=== PATIENT | male | born 1955 | race American Indian/Alaskan Native ===

== ENCOUNTER 2021-02-24 14:30 | Emergency (ER) | payer MEDICARE ==
--- NOTE | 2021-02-24 14:41 | Event Note ---
ED Screening Note Date of service: 02/24/21 Time: 14:39 ED Screening Note: 65-year-old male patient presents to the emergency department with complaints of nontraumatic right foot pain/swelling/erythema starting 4 days ago. No known history of diabetes. No known history of gout. No history of similar symptoms. General: Awake, appropriately interactive, no acute distress. Neck: Supple. Full range of motion intact. Cardiovascular: Normal peripheral perfusion. Pulmonary: No respiratory distress. Patient is speaking normally without use of accessory muscles. Skin: No apparent rashes or lesions. Neurological: No facial asymmetry. Speech is clear. Follows commands. Patient is alert and oriented. Musculoskeletal: Tenderness to palpation throughout the dorsum of the right foot with moderate edema as well as overlying warmth/erythema. Distal neurovascular and motor/sensory function is intact. Psych: Cooperative. Appropriate mood and affect. This initial assessment/diagnostic orders/clinical plan/treatment(s) is/are subject to change based on patients health status, clinical progression and re- assessment by fellow clinical providers in the ED. Further treatment and workup at subsequent clinical providers discretion. Patient/guardian urged not to elope from the ED as their condition may be serious if not clinically assessed and managed.
[2021-02-24 15:45] LABS: Calcium 8.8 mg/dL (8.4-10.2)
[2021-02-24 15:47] LABS: Basophils % (Auto) 0.4 % (0.0-1.8); Eosinophils % (Auto) 0.3 % (0.0-4.3); Hematocrit 39.5 % (35.5-45.6); Hemoglobin 12.6 gm/dl (11.8-15.2); Lymphocytes # (Auto) 1.9 K/mm3 (1.2-5.4); Mean Corpuscular HGB Conc 32 % (32-34); Mean Corpuscular Volume 84 fl (84-94); Monocytes # (Auto) 0.9 K/mm3 (0.0-0.8); Monocytes % (Auto) 8.4 % (0.0-7.3); Platelet Count 183 K/mm3 (140-440); Red Blood Count 4.72 M/mm3 (3.65-5.03); Red Cell Distribution Width 15.8 % (13.2-15.2)
--- NOTE | 2021-02-24 16:55 | Emergency Department Report ---
ED Extremity Problem HPI - General Chief complaint: Extremity Injury, Lower Stated complaint: RT LEG/ RT FOOT SWOLLEN Time Seen by Provider: 02/24/21 16:47 Source: patient, family Mode of arrival: Wheelchair Limitations: Physical Limitation - History of Present Illness Initial comments: 65-year-old male patient presents to the emergency department with complaints of nontraumatic right foot pain/swelling/erythema starting 4 days ago. No known history of diabetes. No known history of gout. No history of similar symptoms. Patient admits that he is a smoker. Patient reports he has a history of PAD and [facility] MD Complaint: extremity pain, extremity swelling, cold extremity Onset/Timin -: days(s) Location: right, other (Foot) History of Same: No Severity scale (0 -10): 3 Quality: aching Consistency: constant Improves with: nothing Worsens with: nothing Associated Symptoms: denies other symptoms - Related Data Previous Rx's Medication Instructions Recorded Last Taken Type Colchicine [Colcrys] 0.6 mg PO DAILY 5 Days #5 tablet 02/24/21 Unknown Rx Prednisone [predniSONE 5 mg (6-Day 5 mg PO .TAPER #1 tab.ds.pk 02/24/21 Unknown Rx Pack, 21 Tabs)] cephALEXin [Keflex] 500 mg PO Q12HR 7 Days #14 cap 02/24/21 Unknown Rx oxyCODONE /ACETAMINOPHEN [Percocet 1 tab PO Q6HR PRN #12 tablet 02/24/21 Unknown Rx 5/325] Allergies Allergy/AdvReac Type Severity Reaction Status Date / Time No Known Allergies Allergy Unverified 02/24/21 14:39 ED Review of Systems ROS: Stated complaint: RT LEG/ RT FOOT SWOLLEN Other details as noted in HPI Comment: All other systems reviewed and negative ED Past Medical Hx - Past Medical History Previous Medical History?: Yes Hx Hypertension: Yes - Social History Smoking Status: Never Smoker Substance Use Type: None - Medications Home Medications: Home Medications Medication Instructions Recorded Confirmed Last Taken Type Colchicine [Colcrys] 0.6 mg PO DAILY 5 Days #5 tablet 02/24/21 Unknown Rx Prednisone [predniSONE 5 mg (6-Day 5 mg PO .TAPER #1 tab.ds.pk 02/24/21 Unknown Rx Pack, 21 Tabs)] cephALEXin [Keflex] 500 mg PO Q12HR 7 Days #14 cap 02/24/21 Unknown Rx oxyCODONE /ACETAMINOPHEN [Percocet 1 tab PO Q6HR PRN #12 tablet 02/24/21 Unknown Rx 5/325] ED Physical Exam - General Limitations: Physical Limitation General appearance: alert, in no apparent distress - Head Head exam: Present: atraumatic, normocephalic - Eye Eye exam: Present: normal appearance - ENT ENT exam: Present: mucous membranes moist - Neck Neck exam: Present: normal inspection - Respiratory Respiratory exam: Present: normal lung sounds bilaterally. Absent: respiratory distress - Cardiovascular Cardiovascular Exam: Present: regular rate, normal rhythm. Absent: systolic murmur, diastolic murmur, rubs, gallop - Expanded Lower Extremity Exam Right Hip exam: Present: normal inspection Upper Leg exam: Present: normal inspection Knee exam: Present: normal inspection Lower Leg exam: Present: normal inspection Ankle exam: Present: normal inspection Foot/Toe exam: Present: tenderness, swelling, erythema Neuro vascular tendon exam: Present: pulse deficit (1+) ED Course Vital Signs 02/24/21 02/24/21 02/24/21 14:37 14:39 17:10 Temperature 98.6 F Pulse Rate 82 Respiratory 20 18 Rate Blood Pressure 126/83 [Right] O2 Sat by Pulse 100 Oximetry ED Medical Decision Making - Lab Data Result diagrams: 02/24/21 15:04 02/24/21 15:04 - Medical Decision Making 65-year-old male patient presents to the emergency department with complaints of nontraumatic right foot pain/swelling/erythema starting 4 days ago. No known history of diabetes. No known history of gout. No history of similar symptoms. Patient admits that he is a smoker. Patient reports he has a history of PAD and [facility]. Patient was given Percocet, colchicine and prednisone for pain management. Case was discussed with Dr. Barbra Vogel attending. She recommends patient to be discharged on Percocet, colchine prednisone and Keflex. Patient is to [facility]. Strongly suggest patient to discontinue smoking as this does not improve his perfusion and can make his PAD worse. Patient verbalized understanding Critical care attestation.: If time is entered above; I have spent that time in minutes in the direct care of this critically ill patient, excluding procedure time. ED Disposition Clinical Impression: Gout due to renal impairment, Cellulitis and abscess of foot Disposition: DC-01 TO HOME OR SELFCARE Is pt being admited?: No Does the pt Need Aspirin: No Condition: Stable Instructions: Low-Purine Eating Plan, Skin Abscess, [id number] Additional Instructions: Complete antibiotics as prescribed. Take all medications as prescribed. Do not operate heavy machinery while taking Percocet. Be sure to increase your water intake by 2 to 3 L daily. Is very important you follow-up with your primary healthcare provider. Prescriptions: Colchicine [Colcrys] 0.6 mg PO DAILY 5 Days #5 tablet cephALEXin [Keflex] 500 mg PO Q12HR 7 Days #14 cap oxyCODONE /ACETAMINOPHEN [Percocet 5/325] 1 tab PO Q6HR PRN #12 tablet PRN Reason: Pain Prednisone [predniSONE 5 mg (6-Day Pack, 21 Tabs)] 5 mg PO .TAPER #1 tab.ds.pk Referrals: PRIMARY CAREMD [Primary Care Provider] - 3-5 Days [facility] [Outside] - 3-5 Days VIV KRISHNA MD [Staff Physician] - 3-5 Days
[2021-02-24] MEDS ORDERED: predniSONE 20 MG TAB PO ONE (16:57)
[2021-02-24] MEDS ORDERED: COLCHICINE 0.6 MG TAB PO ONE (16:57)
[2021-02-24] MEDS ORDERED: oxyCODONE /ACETAMINOPHEN 5-325MG TAB PO ONE (16:57)
--- NOTE | 2021-02-24 16:57 | Event Note ---
Face to Face: For this encounter I have reviewed the PA/UNIT ASSISTANT documentation, treatment plan, medical decision making, and I had face to face time with this patient. I evaluated patient [id number]. Patient has an erythematous foot mostly involving the volar surface. I appreciate a 1+ DP pulse. 2 out of 10 pain. I do not suspect acute peripheral artery occlusion. Differential diagnosis includes cellulitis gout. I recommended Percocet, prednisone, colchicine. Patient understands diagnosis. He understands to stop smoking immediately considering history of peripheral artery disease.
[2021-02-24 19:39] VITALS: BP 148/84
== END 2021-02-24 19:40 | disposition home or self-care (01) ==
LOC: ED 14:30
DX: L03.115 Cellulitis of right lower limb (principal); M10.371 Gout due to renal impairment, right ankle and foot; I10 Essential (primary) hypertension; Z79.899 Other long term (current) drug therapy
CPT/HCPCS: 36415; 80048; 85025; 87040; 99283; J7512

== ENCOUNTER 2021-04-16 06:14 | Day surgery (SDC) | payer MEDICARE ==
[2021-04-16] MEDS ORDERED: SODIUM CHLORIDE 0.9% 500 ML 500 ML IV SCH (07:00)
[2021-04-16 07:08] LABS: Basophils # (Auto) 0.1 K/mm3 (0.0-0.1); Basophils % (Auto) 1.3 % (0.0-1.8); Eosinophils # (Auto) 0.2 K/mm3 (0.0-0.4); Eosinophils % (Auto) 2.5 % (0.0-4.3); Hematocrit 42.3 % (35.5-45.6); Hemoglobin 13.7 gm/dl (11.8-15.2); Lymphocytes # (Auto) 2.4 K/mm3 (1.2-5.4); Lymphocytes % (Auto) 38.5 % (13.4-35.0); Mean Corpuscular HGB Conc 32 % (32-34); Mean Corpuscular Volume 84 fl (84-94); Monocytes # (Auto) 0.7 K/mm3 (0.0-0.8); Monocytes % (Auto) 11.7 % (0.0-7.3); Platelet Count 215 K/mm3 (140-440); Red Blood Count 5.03 M/mm3 (3.65-5.03); Red Cell Distribution Width 18.6 % (13.2-15.2)
[2021-04-16 07:18] LABS: INR 1.05 (0.87-1.13); Partial Thromboplastin Time 26.2 Sec. (24.2-36.6)
[2021-04-16 07:19] LABS: Calcium 8.8 mg/dL (8.4-10.2)
[2021-04-16] MEDS ORDERED: SODIUM CHLORIDE 0.9% 1000 ML 1,000 ML IV SCH (07:45)
[2021-04-16] MEDS ORDERED: HEPARIN/NS 5000 UNIT/500ML 1,000 ML IR ONE ×2 (08:32→10:28)
[2021-04-16] MEDS ORDERED: ceFAZolin/Water 2 GM/20 ML 2 GM/20 ML SYRINGE IV ONE (09:03)
[2021-04-16] MEDS ORDERED: HEPARIN 10,000 UNITS/10 ML VIAL ONE (09:03)
[2021-04-16] MEDS ORDERED: NITROGLYCERIN SYRINGE 0 ML ONE (09:03)
[2021-04-16] MEDS: MIDAZOLAM 2 MG/2 ML INJ ONE ×2 (09:37→09:41)
[2021-04-16] MEDS: fentaNYL 100 MCG/2 ML INJ ONE ×5 (09:37→10:54)
[2021-04-16] MEDS ORDERED: diphenhydrAMINE 50 MG/ML VIAL ONE (09:40)
[2021-04-16] MEDS: LIDOCAINE 1%/EPINEPHRINE 1:100,000 VIAL (20 ML) INFILTRATI ONE ×2 (09:44→09:52)
[2021-04-16] MEDS ORDERED: ONDANSETRON 4 MG/2 ML INJ ONE (09:54)
[2021-04-16] MEDS: MIDAZOLAM 5 MG/5 ML INJ MDV IV ONE ×2 (10:15→10:54)
[2021-04-16] MEDS: hydrALAZINE 20 MG/1 ML INJ ONE ×4 (10:23→11:05)
[2021-04-16] MEDS ORDERED: METOPROLOL TARTRATE 5 MG/5 ML INJ IV ONE (10:58)
[2021-04-16] MEDS ORDERED: ASPIRIN 81 MG TAB CHEW ONE (11:06)
[2021-04-16] MEDS ORDERED: ALUM-MAG HYDROXIDE-SIMETHICONE 200-200-20MG/5ML ORAL LIQD 30 ML ONE (11:07)
[2021-04-16] MEDS ORDERED: CLOPIDOGREL 300 MG TAB ONE (11:07)
--- NOTE | 2021-04-16 11:23 | Operative Report ---
Operative Report Operative Report: EXAM: 1. Ultrasound-guided access of the right common femoral artery. 2. Ultrasound-guided access of the left common femoral artery. 3. Angiography of the right lower extremity. 4. Angiography of the left lower extremity. 5. Selection of the aorta with aortography and bilateral iliac angiography 6. Stenting of the right common iliac artery with a 8 mm x 59 mm VBX with post angioplasty with a 9 mm x 40 mm angioplasty balloon 7. Stenting of the left common iliac artery with an 8 mm x 59 mm VBX 8. Stenting of the right external iliac artery with a 8 mm x 7.5 mm Viabahn postdilated with a 7 mm x 40 mm angioplasty balloon 9. Angioplasty of the left external iliac artery with a 6 mm x 80 mm iNPACT angioplasty balloon DATE: 04/16/2021 CUSTOMER COUNTER ASSOCIATE: OBDULIO MAY MD INDICATION: Severe short distance claudication with right foot critical limb ischemia with partially healing foot wound MEDICATIONS: Please see nursing report for full details. DEVICES: 8 mm x 59 mm VBX (x2) 9 mm x 40 mm angioplasty balloon 8 mm x 7.5 cm Viabahn 7 mm x 40 mm angioplasty balloon 6 mm x 80 mm iNPACT balloon CONTRAST: 55 mL of nonionic contrast, Omnipaque 300 PROCEDURE: The risks, benefits, and alternatives were discussed with the patient; written informed consent was obtained. The patient's groins were prepped and draped in a sterile fashion. Ultrasound was used to identify the right common femoral artery which was patent. Under direct ultrasound guidance, the right common femoral artery was accessed with a 21-gauge micropuncture needle. 0.018 inch wire was passed into the aorta. Needle was exchanged for transitional dilator. Wire was exchanged for a 0.035 inch wire. Transitional dilator was exchanged for 5 Palestinian sheath. Digital subtraction angiography was performed demonstrating an appropriate puncture, above the bifurcation and below the inferior epigastric artery. Ultrasound was used to identify the left common femoral artery which was patent. Under direct ultrasound guidance, the left common femoral artery was accessed with a 21-gauge micropuncture needle. 0.018 inch wire was passed into the left iliac artery. Needle was entry exchanged for transitional dilator. Wire was exchanged for a 0.035 inch Glidewire advantage wire. This was then negotiated into the aorta. Transitional dilator was exchanged for 5 Palestinian sheath. Digital subtraction was performed demonstrating an appropriate puncture, above the bifurcation and below the inferior epigastric artery. Patient was heparinized. The abdominal aorta was selected and digital subtraction angiography was performed. Digital subtraction angiography demonstrated patency of the infrarenal abdominal aorta. The right common iliac artery had a mid 90% stenotic ulcerated plaque. The right internal iliac artery was at least 60% stenotic from the origin. The right external iliac artery had a 90% stenosis at the midportion and a proximal 40% stenosis at the proximal portion of the vessel. The distal right external iliac artery had some small ulcerations that were 20% narrowed. The right common femoral artery had diffuse 20 to 30% narrowing. The right profunda femoral artery was patent. The visualized portion of the right proximal superficial femoral artery was diffusely 60% narrowed. The left mid common iliac artery has a 70% narrowing in the left distal common iliac artery has a 90% narrowing. The left internal iliac artery was patent. The left proximal and mid external iliac artery had 50 to 70% narrowings. The left common femoral artery had diffuse 20 to 30% narrowing. The left profundofemoral artery was patent. The visualized portion of the left proximal superficial femoral artery was 70% narrowed diffusely. Both sheaths were exchanged for 7 Palestinian sheaths. The right common iliac artery was stented in a kissing fashion with the left common iliac artery. Both sides were stented with 8 mm x 59 mm VBX stent grafts performed simultaneously. The right external iliac artery was then stented with a 8 mm x 7.5 mm Viabahn. The right external iliac artery was postdilated with a 7 mm x 40 mm angioplasty balloon. The right common iliac artery was postdilated with a 9 mm x 40 mm angioplasty balloon. The left external iliac artery was angioplastied with a 6 mm x 80 mm iNPACT ba dale. Intermittent angiography was performed throughout the procedure. Digital subtraction angiography at conclusion of the procedure demonstrated a patent right common iliac artery, no change of the right internal iliac artery, and a patent right external iliac artery. The right common femoral artery was unchanged in appearance. Digital subtraction angiography also demonstrated a patent left common iliac artery, a patent left internal iliac artery, and a patent left external iliac artery with a minimal nonflow limiting proximal external iliac artery dissection. The left common femoral artery was unchanged in appearance. ACT was obtained and was in the 200s. At this point, both sheaths were sutured in place with silk and obturators were placed through these sheaths. Patient was then brought to the recovery area where his ACT would be monitored. Once it reached normal level, sheaths would be pulled and pressure would be held until hemostasis was achieved. FINDINGS: Please see procedure note above IMPRESSION: Successful right common iliac artery stenting. Successful left common iliac artery stenting. Successful right external iliac artery stenting. Successful left external iliac artery angioplasty.
--- NOTE | 2021-04-16 11:53 | Short Stay Summary ---
Short Stay Documentation Date of service: 04/16/21 Narrative H&P: 65-year-old male with multiple medical issues with peripheral vascular disease and chronic kidney disease who presents with critical limb ischemia of the right lower extremity and short distance claudication. - History Principal diagnosis: Intermittent claudication of the bilateral lower extremities and CLI H&P: obtained from office Past Medical History: CAD, hypertension, hyperlipidemia, PVD, other (CLI of the right lower extremity) Social history: smoking - Allergies and Medications Current Medications: Allergies No Known Allergies Allergy (Unverified 02/24/21 14:39) Home Medications Medication Instructions Recorded Confirmed Last Taken Type Colchicine [Colcrys] 0.6 mg PO DAILY 5 Days #5 tablet 02/24/21 04/16/21 Unknown Rx Aspirin 325 mg PO QDAY 04/16/21 04/16/21 04/14/21 History 1 tab Atorvastatin [Lipitor Tab] 40 mg PO 04/16/21 04/14/21 History 1 tab lisinopriL [Lisinopril] 10 mg PO 04/16/21 04/14/21 History 1 tab Active Medications Sodium Chloride (Nacl 0.9% 500 Ml) 500 mls @ 50 mls/hr IV DIRECT LILIAN Stop: 04/16/21 20:00 Last Admin: 04/16/21 07:34 Dose: 50 mls/hr Documented by: Sodium Chloride (Nacl 0.9% 1000 Ml) 1,000 mls @ 100 mls/hr IV DIRECT LILIAN Last Admin: 04/16/21 08:53 Dose: 100 mls/hr Documented by: - Physical exam General appearance: mild distress (Right foot ulceration) Lungs: Normal air movement Gastrointestinal: normal Extremities: normal temperature, normal color, abnormal (Nonpalpable femoral or pedal pulses) - Brief post op/procedure progress note Date of procedure: 04/16/21 Pre-op diagnosis: Intermittent claudication of the bilateral lower extremities, CLI Post-op diagnosis: same Procedure: 1. Ultrasound-guided access of the right common femoral artery. 2. Ultrasound-guided access of the left common femoral artery. 3. Angiography of the right lower extremity. 4. Angiography of the left lower extremity. 5. Selection of the aorta with aortography and bilateral iliac angiography 6. Stenting of the right common iliac artery with a 8 mm x 59 mm VBX with post angioplasty with a 9 mm x 40 mm angioplasty balloon 7. Stenting of the left common iliac artery with an 8 mm x 59 mm VBX 8. Stenting of the right external iliac artery with a 8 mm x 7.5 mm Viabahn postdilated with a 7 mm x 40 mm angioplasty balloon 9. Angioplasty of the left external iliac artery with a 6 mm x 80 mm iNPACT angioplasty balloon Anesthesia: local (With conscious sedation) Surgeon: OBDULIO MAY Estimated blood loss: minimal Condition: stable - Hospital course Hospital course: Patient tolerated the procedure well. No immediate postprocedural complications. 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 Do not exert yourself for 1 week. Sponge bath for the next few days to allow groins to heal.) Weight Bearing Status: Weight Bear as Tolerated Diet: regular Wound: keep clean and dry (Sponge bath for the next 2 days to allow area to heal.) Follow up with: PRIMARY CARE, [Primary Care Provider] - 7 Days
[2021-04-16] MEDS ORDERED: hydrALAZINE 20 MG/1 ML INJ IV ONE (13:45)
[2021-04-16] MEDS ORDERED: hydrALAZINE 20 MG/1 ML INJ ONE (13:46)
[2021-04-16 18:14] VITALS: BP 152/69
== END 2021-04-16 19:15 | disposition home or self-care (01) ==
LOC: CATHLABREC 06:14
PROVIDERS: ATTEND Radiology Diagnostic Radiology
DX: I70.213 Atherosclerosis of native arteries of extremities with intermittent claudication, bilateral legs (principal); I12.9 Hypertensive chronic kidney disease with stage 1 through stage 4 chronic kidney disease, or unspecified chronic kidney disease; N18.30 Chronic kidney disease, stage 3 unspecified; F32.9 Major depressive disorder, single episode, unspecified; F17.210 Nicotine dependence, cigarettes, uncomplicated; Z72.89 Other problems related to lifestyle; Z98.890 Other specified postprocedural states; Z79.899 Other long term (current) drug therapy; Z79.82 Long term (current) use of aspirin; Z86.73 Personal history of transient ischemic attack (TIA), and cerebral infarction without residual deficits
CPT/HCPCS: 36415; 37221; 37222; 37223; 75625; 75716; 76937; 80048; 85025; 85347; 85610; 85730; 99156; 99157; C1725; C1769; C1874; C2623; J0360; J0690; J1200; J1644; J2250; J3010; J7030; J7040; 96360; 96361; 96374; J2405; Q9967

== ENCOUNTER 2021-05-15 11:38 | Inpatient (IN) | payer OTHER, MEDICARE ==
--- NOTE | 2021-05-15 11:53 | Event Note ---
ED Screening Note Date of service: 05/15/21 Time: 11:53 ED Screening Note: Dizziness and weakness x2 days History of stroke Permanent left facial droop Patient does have positive Romberg on exam Charge nurse alerted CT called for emergent CT head This initial assessment/diagnostic orders/clinical plan/treatment(s) is/are subject to change based on patients health status, clinical progression and re- assessment by fellow clinical providers in the ED. Further treatment and workup at subsequent clinical providers discretion. Patient/guardian urged not to elope from the ED as their condition may be serious if not clinically assessed and managed. Initial orders include: Stroke protocol
--- NOTE | 2021-05-15 12:08 | Emergency Department Report ---
HPI - General Chief Complaint: Neuro Symptoms/Deficit Time Seen by Provider: 05/15/21 11:57 - HPI HPI: This is a 65-year-old -[place] male presents to the emergency department from home with complaint of slurred speech, blurry vision, difficulty with walking, feeling off balance, and concern for a stroke. Patient was brought in by his daughter, who checks on him daily. Last known well time was sometime on Thursday. She says that she started to notice him having some slurred speech and appearing slightly off balanced on Thursday. The symptoms have progressively worsened since this time so he was brought in for further evaluation. He has a history of previous CVA but it does not sound like he has any residual deficits. The patient has history of hypertension, hyperlipidemia, gout and peripheral dural disease. Patient had a lower extremity revascularization procedure done a few weeks ago here with [facility] [place]. He is a tobacco smoker but denies any illicit drug use. ED Past Medical Hx - Past Medical History Previous Medical History?: Yes Hx Hypertension: Yes Hx CVA: Yes - Surgical History Additional Surgical History: Stent - Social History Smoking Status: Current Every Day Smoker - Medications Home Medications: Home Medications Medication Instructions Recorded Confirmed Last Taken Type Colchicine [Colcrys] 0.6 mg PO DAILY 5 Days #5 tablet 02/24/21 04/16/21 Unknown Rx Aspirin 325 mg PO QDAY 04/16/21 04/16/21 04/14/21 History 1 tab Aspirin EC [Halfprin EC] 81 mg PO QDAY #30 tablet. 04/16/21 Unknown Rx Atorvastatin [Lipitor Tab] 40 mg PO 04/16/21 04/14/21 History 1 tab Clopidogrel [Plavix] 75 mg PO QDAY #30 tablet 04/16/21 Unknown Rx HYDROcodone/APAP 5-325 [[place] 1 each PO Q6HR PRN #25 tablet 04/16/21 Unknown Rx 5/325] lisinopriL [Lisinopril] 10 mg PO 04/16/21 04/14/21 History 1 tab ED Review of Systems ROS: Stated complaint: SLURR SPEECH,NOT ABLE TO WALK, NOT EATING Other details as noted in HPI Comment: All other systems reviewed and negative Constitutional: denies: chills, fever Eyes: vision change (blurry vision). denies: eye pain Respiratory: denies: cough, shortness of breath Cardiovascular: denies: chest pain, palpitations Gastrointestinal: denies: abdominal pain, vomiting Genitourinary: denies: dysuria, discharge Musculoskeletal: denies: back pain, arthralgia Skin: denies: rash, lesions Neurological: weakness. denies: numbness Physical Exam - Physical Exam Vital Signs: Vital Signs 05/15/21 11:46 Temperature 98.5 F Pulse Rate 82 Respiratory 18 Rate Blood Pressure 191/80 O2 Sat by Pulse 99 Oximetry Physical Exam: GENERAL: The patient is well-developed well-nourished. HENT: Normocephalic. Atraumatic. Patient has moist mucous membranes. EYES: Extraocular motions are intact. Pupils equal reactive to light bilaterally. NECK: Supple. Trachea is midline. CHEST/LUNGS: Clear to auscultation. There is no respiratory distress noted. HEART/CARDIOVASCULAR: Regular. There is no tachycardia. There is no murmur. ABDOMEN: Abdomen is soft, nontender. Patient has normal bowel sounds. There is no abdominal distention. SKIN: Skin is warm and dry. NEURO: The patient is awake, alert, and oriented. The patient is cooperative. Left nasolabial fold paresis. Mild left upper extremity drift. Mild to moderate dysarthria. MUSCULOSKELETAL: There is no tenderness or deformity. ED Course Vital Signs 05/15/21 11:46 Temperature 98.5 F Pulse Rate 82 Respiratory 18 Rate Blood Pressure 191/80 O2 Sat by Pulse 99 Oximetry ED Medical Decision Making - Lab Data Result diagrams: 05/15/21 12:32 05/15/21 12:32 Lab Results 05/15/21 05/15/21 05/15/21 Range/Units 12:32 12:32 12:32 WBC 5.3 (4.5-11.0) K/mm3 RBC 4.43 (3.65-5.03) M/mm3 Hgb 11.7 L (11.8-15.2) gm/dl Hct 37.2 (35.5-45.6) % MCV 84 (84-94) fl MCH 27 L (28-32) pg MCHC 32 (32-34) % RDW 17.7 H (13.2-15.2) % Plt Count 193 (140-440) K/mm3 Lymph % (Auto) 30.5 (13.4-35.0) % [place] % (Auto) 11.7 H (0.0-7.3) % Eos % (Auto) 0.7 (0.0-4.3) % Baso % (Auto) 0.4 (0.0-1.8) % Lymph # (Auto) 1.6 (1.2-5.4) K/mm3 [place] # (Auto) 0.6 (0.0-0.8) K/mm3 Eos # (Auto) 0.0 (0.0-0.4) K/mm3 Baso # (Auto) 0.0 (0.0-0.1) K/mm3 Seg Neutrophils % 56.7 (40.0-70.0) % Seg Neutrophils # 3.0 (1.8-7.7) K/mm3 PT 13.9 (12.2-14.9) Sec. INR 1.02 (0.87-1.13) APTT 25.7 (24.2-36.6) Sec. Thrombin Time 17.3 (15.1-19.6) Sec. Sodium (137-145) mmol/L Potassium (3.6-5.0) mmol/L Chloride (98-107) mmol/L Carbon Dioxide (22-30) mmol/L Anion Gap mmol/L BUN (9-20) mg/dL Creatinine (0.8-1.3) mg/dL Estimated GFR ml/min BUN/Creatinine Ratio % Glucose (75-100) mg/dL Calcium (8.4-10.2) mg/dL Total Bilirubin (0.1-1.2) mg/dL AST (5-40) units/L ALT (7-56) units/L Alkaline Phosphatase (35-129) units/L Total Creatine Kinase 70 (55-170) units/L CK-MB (CK-2) < 1.0 (0.0-4.0) ng/mL CK-MB (CK-2) Rel Index 1.4 (0-4) Troponin T < 0.010 (0.00-0.029) ng/mL Total Protein (6.3-8.2) g/dL Albumin (3.9-5) g/dL Albumin/Globulin Ratio % TSH (0.270-4.200) mlU/mL Plasma/Serum Alcohol (0-0.07) % 05/15/21 05/15/21 05/15/21 Range/Units 12:32 12:32 12:32 WBC (4.5-11.0) K/mm3 RBC (3.65-5.03) M/mm3 Hgb (11.8-15.2) gm/dl Hct (35.5-45.6) % MCV (84-94) fl MCH (28-32) pg MCHC (32-34) % RDW (13.2-15.2) % Plt Count (140-440) K/mm3 Lymph % (Auto) (13.4-35.0) % [place] % (Auto) (0.0-7.3) % Eos % (Auto) (0.0-4.3) % Baso % (Auto) (0.0-1.8) % Lymph # (Auto) (1.2-5.4) K/mm3 [place] # (Auto) (0.0-0.8) K/mm3 Eos # (Auto) (0.0-0.4) K/mm3 Baso # (Auto) (0.0-0.1) K/mm3 Seg Neutrophils % (40.0-70.0) % Seg Neutrophils # (1.8-7.7) K/mm3 PT (12.2-14.9) Sec. INR (0.87-1.13) APTT (24.2-36.6) Sec. Thrombin Time (15.1-19.6) Sec. Sodium 143 (137-145) mmol/L Potassium 3.2 L (3.6-5.0) mmol/L Chloride 109.0 H (98-107) mmol/L Carbon Dioxide 24 (22-30) mmol/L Anion Gap 13 mmol/L BUN 12 (9-20) mg/dL Creatinine 1.6 H (0.8-1.3) mg/dL Estimated GFR 53 ml/min BUN/Creatinine Ratio 8 % Glucose 99 (75-100) mg/dL Calcium 9.4 (8.4-10.2) mg/dL Total Bilirubin 0.50 (0.1-1.2) mg/dL AST 16 (5-40) units/L ALT 6 L (7-56) units/L Alkaline Phosphatase 82 (35-129) units/L Total Creatine Kinase (55-170) units/L CK-MB (CK-2) (0.0-4.0) ng/mL CK-MB (CK-2) Rel Index (0-4) Troponin T (0.00-0.029) ng/mL Total Protein 7.0 (6.3-8.2) g/dL Albumin 3.8 L (3.9-5) g/dL Albumin/Globulin Ratio 1.2 % TSH 0.235 L (0.270-4.200) mlU/mL Plasma/Serum Alcohol < 0.01 (0-0.07) % - Radiology Data Radiology results: report reviewed CT head/brain wo con INDICATION / CLINICAL INFORMATION: 65 years Male; LT side weakness x2days. TECHNIQUE: Routine CT head without contrast. All CT scans at this location are performed using CT dose reduction for ALARA by means of automated exposure control. COMPARISON: None. FINDINGS: BRAIN / INTRACRANIAL CONTENTS: There are multiple old lacunar infarcts involving basal ganglia, greater on the right as well as the left thalamus. There are also chronic ischemic changes within the anterior centrum semiovale bilaterally. Additionally, there is extensive encephalomalacia along the posterior left cerebellum as well as the posterior left temporal lobe compatible with old infarcts.There is otherwise cerebral white matter disease most consistent with microvascular angiopathy. There is no clear CT evidence of acute intracranial hemorrhage or significant mass effect. There is mild cerebral atrophy with associated mild prominence of the ventricular system. There appear to be milder white matter changes within the dev. ORBITS: No significant abnormality of visualized orbits. SINUSES / MASTOIDS: There is mild mucosal thickening within the visualized right maxillary sinus with associated wall thickening indicative of chronic process. CRANIOCERVICAL JUNCTION: No significant abnormality. ADDITIONAL FINDINGS: None. IMPRESSION: 1. There is extensive microvascular angiopathy and old infarcts as detailed above without clear CT evidence of acute intracranial hemorrhage. CT angio neck INDICATION / CLINICAL INFORMATION: 65 years Male; CVA, lt side weakness slurred speech [id number] 100ml. TECHNIQUE: Thin cut axial images obtained through the head during IV bolus contrast administration. Sagittal, coronal, and 3 plane MIP reconstructions performed by the technologist. NASCET type criteria used evaluate stenoses. All CT scans at this location are performed using CT dose reduction for ALARA by means of automated exposure control. COMPARISON: None. FINDINGS: CAROTID ARTERIES: There is calcified plaque along the medial proximal right ICA without significant stenosis by NASCET criteria. There are small foci of calcification involving the proximal left ICA without stenosis. VERTEBRAL ARTERIES: The vertebral arteries demonstrate appropriate caliber without significant focal stenosis. ARCH: There is no significant stenosis involving the origins of the arch vessels. ADDITIONAL FINDINGS: There is mild heterogeneous prominence of the right lobe of thyroid gland which is nonspecific at. There are cystic foci projected within the left lobe with the largest measuring approximately 8 mm at. There is bulla formation within the right lung apex. IMPRESSION: There is mild atherosclerotic calcification involving proximal internal carotid arteries without significant stenosis by NASCET criteria. CT angio head INDICATION / CLINICAL INFORMATION: 65 years Male; CVA lt side weak ness slurred speech [id number] 100ml. TECHNIQUE: Thin cut axial images obtained through the head during IV bolus contrast administration. Sagittal, coronal, and 3 plane MIP reconstructions performed by the technologist. NASCET type criteria used evaluate stenoses. Automated exposure control utilized for radiation reduction purposes. COMPARISON: None available. FINDINGS: INTERNAL CAROTID ARTERIES: There is mild atherosclerotic calcification involving intracranial ICAs with milder to moderate to segmental narrowing on the right. VERTEBROBASILAR SYSTEM: There is no significant focal stenosis involving the vertebral basilar system. 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 Otherwise, the proximal cerebral arteries and adjacent segments appear to demonstrate appropriate caliber without CT evidence of large vessel occlusion. ANEURYSM: None identified. ADDITIONAL FINDINGS: Remainder of the surrounding soft tissues are grossly normal. IMPRESSION: There is atherosclerotic calcification involving distal internal carotid arteries with mild to moderate segmental narrowing on the right. There is no clear CT evidence of large vessel occlusion - Medical Decision Making This patient presents to the emergency department with complaint of some blurry vision, slurred speech, difficulty with ambulation and feeling off balance, that has been going on for the past 2 days. On examination he has left-sided facial droop, mild to moderate dysarthria, and a mild left upper extremity drift. Patient is outside of the window for TPA, but he was still sent for a stat CT scan of the head without contrast that did not show any bleed, shift, mass, ischemia, large vessel occlusion, or any other acute process. He was seen by the telemedicine neurologist, Dr. Key, who gives the patient NIH stroke scale of 4. Dr. Key recommends CT angiography of the head and neck, followed by admission to the hospital for further evaluation and treatment of what appears to be a CVA. Patient's labs have been mostly unremarkable except for some very mild renal insufficiency and some hypokalemia with a potassium of 3.2. The patient was given potassium chloride. The patient already took aspirin today so no further aspirin will be added. He is also on Plavix. We have been having difficulty obtaining appropriate 20-gauge or greater IV access for angiography studies. The IV team has been paged. Patient has been presented to the admitting hospitalist, Dr. Beard, who is excepted the patient for admission pending the results of CT angiography of the head and neck, as long as it does not require external transfer for any type of neurosurgical intervention. Critical Care Time: Yes Critical care time in (mins) excluding proc time.: 31 Critical care attestation.: If time is entered above; I have spent that time in minutes in the direct care of this critically ill patient, excluding procedure time. Critical care time was spent on this patient in doing his initial evaluation, multiple reevaluations, ordering and interpretation of labs and imaging, discussion with the neurologist, multiple discussions with the patient and his daughter. Critical Care Time: 31 minutes ED Disposition Clinical Impression: Hypokalemia CVA (cerebral vascular accident) Qualifiers: CVA mechanism: unspecified Qualified Code(s): I63.9 - Cerebral infarction, unspecified Hypertension Qualifiers: Hypertension type: essential hypertension Qualified Code(s): I10 - Essential (primary) hypertension Disposition: OP ADMIT IP TO THIS HOSP Is pt being admited?: Yes Condition: Serious Time of Disposition: 14:45
--- NOTE | 2021-05-15 12:18 | Cat Scan Report ---
CT head/brain wo con INDICATION / CLINICAL INFORMATION: 65 years Male; LT side weakness x2days. TECHNIQUE: Routine CT head without contrast. All CT scans at this location are performed using CT dos e reduction for ALARA by means of automated exposure control. COMPARISON: None. FINDINGS: BRAIN / INTRACRANIAL CONTENTS: There are multiple old lacunar infarcts involving basal ganglia, great er on the right as well as the left thalamus. There are also chronic ischemic changes within the ante rior centrum semiovale bilaterally. Additionally, there is extensive encephalomalacia along the poste rior left cerebellum as well as the posterior left temporal lobe compatible with old infarcts.There i s otherwise cerebral white matter disease most consistent with microvascular angiopathy. There is no clear CT evidence of acute intracranial hemorrhage or significant mass effect. There is mild cerebral atrophy with associated mild prominence of the ventricular system. There appea r to be milder white matter changes within the dev. ORBITS: No significant abnormality of visualized orbits. SINUSES / MASTOIDS: There is mild mucosal thickening within the visualized right maxillary sinus with associated wall thickening indicative of chronic process. CRANIOCERVICAL JUNCTION: No significant abnormality. ADDITIONAL FINDINGS: None. IMPRESSION: 1. There is extensive microvascular angiopathy and old infarcts as detailed above without clear CT ev idence of acute intracranial hemorrhage. Signer Name: Bladimir Garcia MD Signed: 05/15/2021 12:14 PM Workstation Name: [id number]
--- NOTE | 2021-05-15 12:25 | Consultation ---
Medications and Allergies Allergies Allergy/AdvReac Type Severity Reaction Status Date / Time No Known Allergies Allergy Unverified 02/24/21 14:39 Home Medications Medication Instructions Recorded Confirmed Last Taken Type Colchicine [Colcrys] 0.6 mg PO DAILY 5 Days #5 tablet 02/24/21 04/16/21 Unknown Rx Aspirin 325 mg PO QDAY 04/16/21 04/16/21 04/14/21 History 1 tab Aspirin EC [Halfprin EC] 81 mg PO QDAY #30 tablet. 04/16/21 Unknown Rx Atorvastatin [Lipitor Tab] 40 mg PO 04/16/21 04/14/21 History 1 tab Clopidogrel [Plavix] 75 mg PO QDAY #30 tablet 04/16/21 Unknown Rx HYDROcodone/APAP 5-325 [[place] 1 each PO Q6HR PRN #25 tablet 04/16/21 Unknown Rx 5/325] lisinopriL [Lisinopril] 10 mg PO 04/16/21 04/14/21 History 1 tab Physical Examination - Vital Signs Vital Signs: Vital Signs Temp Pulse Resp BP Pulse Ox 98.5 F 82 18 191/80 99 05/15/21 11:46 05/15/21 11:46 05/15/21 11:46 05/15/21 11:46 05/15/21 11:46 Assessment and Plan [facility] [facility] Consult Note # Demographics Consult Type: General Neurology Patient Location: Emergency Room First Name: Nitin Roland Last Name: Trevin Date of : 1955 Age: 65 Gender: Male Time of Initial Page (Eastern Time): 05/15/2021, 11:59 Time of Return Call (Eastern Time): 05/15/2021, 11:59 # HPI History: 65M with symptoms for the past 2 days per daughter, just not himself, not eating well and unsteady. Prior stroke years ago. Pelvic artery blockages treated a couple of weeks ago reportedly. Reported trouble with vision also per daughter. Last well is 3 days ago per daughter best estimation. Patient reports feeling dizzy and having vision trouble # Scores Time of exam and NIHSS (Eastern Time): 05/15/2021, 12:03 Level of Consciousness 1a: [0] = Alert; keenly responsive LOC Questions 1b: [0] = Answers both questions correctly LOC Commands 1c: [0] = Performs both tasks correctly Best Gaze 2: [0] = Normal Visual 3: [0] = No visual loss Facial Palsy 4: [2] = Partial paralysis Motor Arm Left 5a: [1] = Drift Motor Arm Right 5b: [0] = No drift Motor Leg Left 6a: [0] = No drift Motor Leg Right 6b: [0] = No drift Limb Ataxia 7: [0] = Absent Sensory 8: [0] = Normal Best Language 9: [0] = No aphasia Dysarthria 10: [1] = Tcmw-[id number] dysarthria Extinction and Inattention 11: [0] = No abnormality NIHSS Total: 4 # PMH-FH-SH Past Medical History: hyperlipidemia hypertension stroke PAD, gout Social History: smoker Medications: lipid lowering agent # Data Head CT: no bleed per radiologist read # Assessment Impression: Ischemic Stroke (Subacute) # Plan Thrombolytic/Intervention: NOT IV Thrombolytic or IA Intervention Thrombolytic Exclusion (< 3 hour window): time of onset unclear Thrombolytic Exclusion: > 4.5 hours Intraarterial Exclusion: pending CTA head/neck. Imaging: (urgency: STAT): CT Angiogram Head and CT Angiogram Neck Imaging: (urgency: routine): MRI Brain without contrast Diagnostic Test: echo without bubble study Medication: aspirin 81 mg daily start statin with goal of LDL < 70 Other: telemetry monitoring I have discussed my recommendations with the referring provider Disposition: admit # Logistics Telemedicine: Interactive 2 way audio and visual telecommunication technology was utilized during this visit
[2021-05-15 13:07] LABS: Basophils % (Auto) 0.4 % (0.0-1.8); Eosinophils % (Auto) 0.7 % (0.0-4.3); Hematocrit 37.2 % (35.5-45.6); Hemoglobin 11.7 gm/dl (11.8-15.2); Lymphocytes # (Auto) 1.6 K/mm3 (1.2-5.4); Lymphocytes % (Auto) 30.5 % (13.4-35.0); Mean Corpuscular HGB Conc 32 % (32-34); Mean Corpuscular Volume 84 fl (84-94); Monocytes # (Auto) 0.6 K/mm3 (0.0-0.8); Monocytes % (Auto) 11.7 % (0.0-7.3); Platelet Count 193 K/mm3 (140-440); Red Blood Count 4.43 M/mm3 (3.65-5.03); Red Cell Distribution Width 17.7 % (13.2-15.2)
[2021-05-15 13:17] LABS: INR 1.02 (0.87-1.13); Partial Thromboplastin Time 25.7 Sec. (24.2-36.6); Thrombin Time 17.3 Sec. (15.1-19.6)
[2021-05-15 13:38] LABS: Creatine Kinase MB < 1.0 ng/mL (0.0-4.0)
[2021-05-15 13:57] LABS: Albumin 3.8 g/dL (3.9-5); Calcium 9.4 mg/dL (8.4-10.2)
[2021-05-15] MEDS ORDERED: POTASSIUM CHLORIDE ER 20 MEQ TAB PO ONE (13:59)
[2021-05-15] MEDS ORDERED: ACETAMINOPHEN 325 MG TAB PO PRN (14:44)
[2021-05-15] MEDS ORDERED: PROMETHAZINE 25 MG RECT SUPP PR PRN (14:44)
[2021-05-15] MEDS ORDERED: METOCLOPRAMIDE 10 MG TAB PO PRN (14:44)
[2021-05-15] MEDS ORDERED: ONDANSETRON 4 MG/2 ML INJ IV PRN (14:44)
[2021-05-15] MEDS ORDERED: ALBUTEROL 2.5 MG/3 ML NEBU IH PRN (14:44)
[2021-05-15] MEDS ORDERED: MAGNESIUM HYDROXIDE (MOM) ORAL LIQD UDC PO PRN (14:44)
--- NOTE | 2021-05-15 14:44 | History and Physical Report ---
History of Present Illness Chief complaint: I think he had a stroke History of present illness: 65 YO Male with HTN, CVA, HLD, CAD S/P Stent placement, Nicotine Dependence presents to ED for evaluation. Patient has diminished cognition at the time my evaluation is unable to provide detailed history. Patient history provided by his daughter who is at bedside during exam and interview. As per daughter the patient reports "I think he had a stroke". Patient daughter states the patient was in his usual state of health at bedtime around 2100 hrs on Thursday. Patient was found today to have slurred speech, difficulty with ambulation, blurred vision. Patient transported to [facility] via private vehicle for further care and evaluation of the aforementioned symptoms. The patient was seen and evaluated in the emergency department. All lab and imaging studies reviewed. The patient was found to have a neurologic deficit. A code stroke was called. Teleneurology was consulted in ED. The patient was placed in observation status and admitted to medical floor and initiated on stroke protocol due to increased risk of worsening symptoms. No reports of fever, chills, chest pain, palpitations, productive cough, skin rash, recent ill contacts, or known exposure to COVID-19. No prior admission for review. All medication listed at time of admission has been reconciled. Advanced care planning conducted in ED. Past History Past Medical History: CAD, hypertension, hyperlipidemia, stroke, other (See HPI) Past Surgical History: Other (Cardiac stent placement) Social history: single, smoking. denies: alcohol abuse, prescription drug abuse Family history: diabetes, hypertension Medications and Allergies Allergies Allergy/AdvReac Type Severity Reaction Status Date / Time No Known Allergies Allergy Unverified 02/24/21 14:39 Home Medications Medication Instructions Recorded Confirmed Last Taken Type Colchicine [Colcrys] 0.6 mg PO DAILY 5 Days #5 tablet 02/24/21 04/16/21 Unknown Rx Aspirin 325 mg PO QDAY 04/16/21 04/16/21 04/14/21 History 1 tab Aspirin EC [Halfprin EC] 81 mg PO QDAY #30 tablet. 04/16/21 Unknown Rx Atorvastatin [Lipitor Tab] 40 mg PO 04/16/21 04/14/21 History 1 tab Clopidogrel [Plavix] 75 mg PO QDAY #30 tablet 04/16/21 Unknown Rx HYDROcodone/APAP 5-325 [[employer] 1 each PO Q6HR PRN #25 tablet 04/16/21 Unknown Rx 5/325] lisinopriL [Lisinopril] 10 mg PO 04/16/21 04/14/21 History 1 tab Review of Systems ROS unobtainable: due to mental status Exam - Constitutional Vitals: Temp Pulse Resp BP Pulse Ox 98.5 F 82 18 191/80 99 05/15/21 11:46 05/15/21 11:46 05/15/21 11:46 05/15/21 11:46 05/15/21 11:46 General appearance: Present: mild distress - EENT Eyes: Present: PERRL ENT: clear oral mucosa, hearing decreased - Neck Neck: Present: supple, normal ROM - Respiratory Respiratory effort: normal Respiratory: bilateral: CTA - Cardiovascular Heart Sounds: Present: S1 & S2. Absent: rub, click - Extremities Extremities: pulses symmetrical, No edema Peripheral Pulses: within normal limits - Abdominal General gastrointestinal: Present: soft, non-tender, non-distended, normal bowel sounds Male genitourinary: Present: normal - Integumentary Integumentary: Present: clear, warm, dry - Musculoskeletal Musculoskeletal: generalized weakness - Psychiatric Psychiatric: no appropriate mood/affect, no intact judgment & insight, no memory intact - Neurologic Neurologic: CNII-XII intact, focal deficits, moves all extremities, no gait normal HEART Score - HEART Score Troponin: Troponin T < 0.010 ng/mL (0.00-0.029) 05/15/21 12:32 Results - Labs CBC & Chem 7: 05/15/21 12:32 05/15/21 12:32 Labs: Abnormal lab results 05/15/21 05/15/21 05/15/21 Range/Units 12:32 12:32 12:32 Hgb 11.7 L (11.8-15.2) gm/dl MCH 27 L (28-32) pg RDW 17.7 H (13.2-15.2) % [place] % (Auto) 11.7 H (0.0-7.3) % Potassium 3.2 L (3.6-5.0) mmol/L Chloride 109.0 H (98-107) mmol/L Creatinine 1.6 H (0.8-1.3) mg/dL ALT 6 L (7-56) units/L Albumin 3.8 L (3.9-5) g/dL TSH 0.235 L (0.270-4.200) mlU/mL Assessment and Plan - Patient Problems (1) CVA (cerebral vascular accident) Current Visit: Yes Status: Acute Qualifiers: CVA mechanism: unspecified Qualified Code(s): I63.9 - Cerebral infarction, unspecified Plan to address problem: CVA protocol: CT head, echocardiogram, carotid Doppler, neuro check, seizure precautions, physical therapy consulted, Occupational Therapy consulted, speech therapy consulted, antiplatelet therapy, lipid panel, statin therapy, telemetry neurology consulted. (2) Hyperlipidemia Current Visit: Yes Status: Acute Qualifiers: Hyperlipidemia type: mixed hyperlipidemia Qualified Code(s): E78.2 - Mixed hyperlipidemia Plan to address problem: Lipid panel, statin therapy. (3) Hypertension Current Visit: Yes Status: Acute Qualifiers: Hypertension type: essential hypertension Plan to address problem: Monitor blood pressure every shift, permissive hypertension overnight. (4) DVT prophylaxis Current Visit: Yes Status: Acute Plan to address problem: SCD bilateral lower extremities while in bed, (5) Advance care planning Current Visit: Yes Status: Acute Plan to address problem: Disease education conducted, care plan discussed, diagnosis discussed, prognosis discussed, patient is full code, patient family knowledges understanding and agree with care plan, +30 minutes.
[2021-05-15] MEDS ORDERED: HYDROcodone/ACETAMINOPHEN 5-325 MG TAB PO PRN (14:46)
--- NOTE | 2021-05-15 17:44 | Cat Scan Report ---
CT angio neck INDICATION / CLINICAL INFORMATION: 65 years Male; CVA, lt side weakness slurred speech [id number] 100ml. TECHNIQUE: Thin cut axial images obtained through the head during IV bolus contrast administration. S agittal, coronal, and 3 plane MIP reconstructions performed by the technologist. NASCET type criteria used evaluate stenoses. All CT scans at this location are performed using CT dose reduction for ALAR A by means of automated exposure control. COMPARISON: None. FINDINGS: CAROTID ARTERIES: There is calcified plaque along the medial proximal right ICA without significant s tenosis by NASCET criteria. There are small foci of calcification involving the proximal left ICA wit hout stenosis. VERTEBRAL ARTERIES: The vertebral arteries demonstrate appropriate caliber without significant focal stenosis. ARCH: There is no significant stenosis involving the origins of the arch vessels. ADDITIONAL FINDINGS: There is mild heterogeneous prominence of the right lobe of thyroid gland which is nonspecific at. There are cystic foci projected within the left lobe with the largest measuring ap proximately 8 mm at. There is bulla formation within the right lung apex. IMPRESSION: There is mild atherosclerotic calcification involving proximal internal carotid arteries without sign ificant stenosis by NASCET criteria. Signer Name: Bladimir Garcia MD Signed: 05/15/2021 5:40 PM Workstation Name: [id number]
--- NOTE | 2021-05-15 17:49 | Cat Scan Report ---
CT angio head INDICATION / CLINICAL INFORMATION: 65 years Male; CVA lt side weakness slurred speech [id number] 100ml. TECHNIQUE: Thin cut axial images obtained through the head during IV bolus contrast administration. S agittal, coronal, and 3 plane MIP reconstructions performed by the technologist. NASCET type criteria used evaluate stenoses. Automated exposure control utilized for radiation reduction purposes. COMPARISON: None available. FINDINGS: INTERNAL CAROTID ARTERIES: There is mild atherosclerotic calcification involving intracranial ICAs wi th milder to moderate to segmental narrowing on the right. VERTEBROBASILAR SYSTEM: There is no significant focal stenosis involving the vertebral basilar system . 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 Otherwise, t he proximal cerebral arteries and adjacent segments appear to demonstrate appropriate caliber without CT evidence of large vessel occlusion. ANEURYSM: None identified. ADDITIONAL FINDINGS: Remainder of the surrounding soft tissues are grossly normal. IMPRESSION: There is atherosclerotic calcification involving distal internal carotid arteries with mild to modera te segmental narrowing on the right. There is no clear CT evidence of large vessel occlusion Signer Name: Bladimir Garcia MD Signed: 05/15/2021 5:44 PM Workstation Name: [id number]
[2021-05-16 05:01] LABS: Chol/HDL Ratio 3.76 %
--- NOTE | 2021-05-16 08:16 | Progress Note ---
Assessment and Plan Assessment and plan: Acute CVA Hyperlipidemia Hypertension Coronary artery disease Tobacco abuse. 05/16/2021. Follow-up echocardiogram, carotid Dopplers and MRI brain. PT/OT evaluation. Continue aspirin, Plavix and Lipitor. Await neurology consultation. History Interval history: No new issues overnight. Hospitalist Physical - Constitutional Vitals: Temp Pulse Resp BP Pulse Ox 99.0 F 73 18 148/73 100 05/16/21 04:01 05/16/21 04:01 05/16/21 04:01 05/16/21 04:01 05/16/21 08:05 General appearance: Present: no acute distress - EENT Eyes: Present: PERRL, EOM intact ENT: hearing intact, clear oral mucosa, dentition normal - Neck Neck: Present: supple, normal ROM - Respiratory Respiratory effort: normal Respiratory: bilateral: CTA - Cardiovascular Rhythm: regular Heart Sounds: Present: S1 & S2. Absent: gallop, rub - Extremities Extremities: no ischemia, No edema, Full ROM - Abdominal General gastrointestinal: soft, non-tender, non-distended, normal bowel sounds - Integumentary Integumentary: Present: clear, warm, dry - Neurologic Neurologic: CNII-XII intact, moves all extremities HEART Score - HEART Score Troponin: Troponin T < 0.010 ng/mL (0.00-0.029) 05/15/21 12:32 Results - Labs CBC & Chem 7: 05/15/21 12:32 05/15/21 12:32 Labs: Laboratory Last Values WBC 5.3 K/mm3 (4.5-11.0) 05/15/21 12:32 RBC 4.43 M/mm3 (3.65-5.03) 05/15/21 12:32 Hgb 11.7 gm/dl (11.8-15.2) L 05/15/21 12:32 Hct 37.2 % (35.5-45.6) 05/15/21 12:32 MCV 84 fl (84-94) 05/15/21 12:32 MCH 27 pg (28-32) L 05/15/21 12:32 MCHC 32 % (32-34) 05/15/21 12:32 RDW 17.7 % (13.2-15.2) H 05/15/21 12:32 Plt Count 193 K/mm3 (140-440) 05/15/21 12:32 Lymph % (Auto) 30.5 % (13.4-35.0) 05/15/21 12:32 [place] % (Auto) 11.7 % (0.0-7.3) H 05/15/21 12:32 Eos % (Auto) 0.7 % (0.0-4.3) 05/15/21 12:32 Baso % (Auto) 0.4 % (0.0-1.8) 05/15/21 12:32 Lymph # (Auto) 1.6 K/mm3 (1.2-5.4) 05/15/21 12:32 [place] # (Auto) 0.6 K/mm3 (0.0-0.8) 05/15/21 12:32 Eos # (Auto) 0.0 K/mm3 (0.0-0.4) 05/15/21 12:32 Baso # (Auto) 0.0 K/mm3 (0.0-0.1) 05/15/21 12:32 Seg Neutrophils % 56.7 % (40.0-70.0) 05/15/21 12:32 Seg Neutrophils # 3.0 K/mm3 (1.8-7.7) 05/15/21 12:32 PT 13.9 Sec. (12.2-14.9) 05/15/21 12:32 INR 1.02 (0.87-1.13) 05/15/21 12:32 APTT 25.7 Sec. (24.2-36.6) 05/15/21 12:32 Thrombin Time 17.3 Sec. (15.1-19.6) 05/15/21 12:32 Sodium 143 mmol/L (137-145) 05/15/21 12:32 Potassium 3.2 mmol/L (3.6-5.0) L 05/15/21 12:32 Chloride 109.0 mmol/L (98-107) H 05/15/21 12:32 Carbon Dioxide 24 mmol/L (22-30) 05/15/21 12:32 Anion Gap 13 mmol/L 05/15/21 12:32 BUN 12 mg/dL (9-20) 05/15/21 12:32 Creatinine 1.6 mg/dL (0.8-1.3) H 05/15/21 12:32 Estimated GFR 53 ml/min 05/15/21 12:32 BUN/Creatinine Ratio 8 % 05/15/21 12:32 Glucose 99 mg/dL (75-100) 05/15/21 12:32 Calcium 9.4 mg/dL (8.4-10.2) 05/15/21 12:32 Total Bilirubin 0.50 mg/dL (0.1-1.2) 05/15/21 12:32 AST 16 units/L (5-40) 05/15/21 12:32 ALT 6 units/L (7-56) L 05/15/21 12:32 Alkaline Phosphatase 82 units/L (35-129) 05/15/21 12:32 Total Creatine Kinase 70 units/L (55-170) 05/15/21 12:32 CK-MB (CK-2) < 1.0 ng/mL (0.0-4.0) 05/15/21 12:32 CK-MB (CK-2) Rel Index 1.4 (0-4) 05/15/21 12:32 Troponin T < 0.010 ng/mL (0.00-0.029) 05/15/21 12:32 Total Protein 7.0 g/dL (6.3-8.2) 05/15/21 12:32 Albumin 3.8 g/dL (3.9-5) L 05/15/21 12:32 Albumin/Globulin Ratio 1.2 % 05/15/21 12:32 Triglycerides 65 mg/dL (2-149) 05/16/21 04:13 Cholesterol 113 mg/dL (50-199) 05/16/21 04:13 LDL Cholesterol Direct 75 mg/dL (50-130) 05/16/21 04:13 HDL Cholesterol 30 mg/dL (40-59) L 05/16/21 04:13 Cholesterol/HDL Ratio 3.76 % 05/16/21 04:13 TSH 0.235 mlU/mL (0.270-4.200) L 05/15/21 12:32 Plasma/Serum Alcohol < 0.01 % (0-0.07) 05/15/21 12:32 Active Medications - Current Medications Current Medications: Generic Name Dose Route Start Last Admin Trade Name Freq PRN Reason Stop Dose Admin Acetaminophen 650 mg 06/23/21 14:44 Acetaminophen 325 Mg Tab PO Q4H PRN Pain, Mild (1-3) Hydrocodone Bitart/Acetaminophen 1 each 05/15/21 14:46 Hydrocodone/Acetaminophen 5-325 Mg Tab PO Q6HR PRN PAIN Albuterol 2.5 mg 05/15/21 14:44 Albuterol 2.5 Mg/3 Ml Nebu IH Q3HRT PRN Shortness Of Breath Aspirin 325 mg 05/16/21 10:00 Aspirin 325 Mg Tab PO QDAY [facility] Atorvastatin Calcium 40 mg 05/15/21 22:00 05/15/21 22:15 Atorvastatin 40 Mg Tab PO 40 mg QHS [facility] Administration Bisacodyl 10 mg 05/15/21 14:44 Bisacodyl 10 Mg Rect Supp [place] QDAY PRN Constipation Clopidogrel Bisulfate 75 mg 05/16/21 10:00 Clopidogrel 75 Mg Tab PO QDAY [facility] Colchicine 0.6 mg 05/16/21 10:00 Colchicine 0.6 Mg Tab PO DAILY [facility] Magnesium Hydroxide 30 ml 05/15/21 14:44 Magnesium Hydroxide (Mom) Oral Liqd Udc PO Q4H PRN Constipation Metoclopramide HCl 10 mg 05/15/21 14:44 Metoclopramide 10 Mg Tab PO Q6H PRN Nausea And Vomiting Ondansetron HCl 4 mg 05/15/21 14:44 Ondansetron 4 Mg/2 Ml Inj IV Q8H PRN Nausea And Vomiting Promethazine HCl 25 mg 05/15/21 14:44 Promethazine 25 Mg Rect Supp [place] Q6H PRN Nausea And Vomiting Sodium Chloride 10 ml 05/15/21 14:44 Sodium Chloride 0.9% 10 Ml Flush Syringe IV PRN PRN LINE FLUSH
[2021-05-16] MEDS ORDERED: ASPIRIN 325 MG TAB PO SCH (10:00)
--- NOTE | 2021-05-16 11:34 | Magnetic Resonance Report ---
MRI BRAIN 05/16/2021 INDICATION / CLINICAL INFORMATION: cva, LT SIDED WEAKNESS. TECHNIQUE: Multiplanar, multisequence MR images of the brain were obtained. COMPARISON: CT brain 05/15/2021 FINDINGS: BRAIN / INTRACRANIAL CONTENTS: Unenhanced MR images of the brain demonstrate a 1.2 cm focus of restri cted diffusion in the right centrum semiovale, the periventricular white matter. This is consistent w ith acute ischemic injury. No other areas of acute ischemic change are noted. Prominent diffuse cerebral atrophy is present. Extensive chronic white matter T2 weighted hyperintens ities are present in the periventricular and deep white matter of cerebral hemispheres. Scattered lac unar changes are present in the basal ganglia and thalami and brainstem bilaterally. There is evidence of prior left lower cerebellar cortical infarct. There is no evidence of hemorrhage or mass. Prominent diffuse cerebral atrophy is present. EXTRACRANIAL: Unremarkable CRANIOCERVICAL JUNCTION: No significant abnormality. VASCULAR FLOW-VOIDS: No significant abnormality. IMPRESSION: Acute right periventricular subcortical infarct. Extensive chronic and age-related changes. Old left cerebellar infarct. Signer Name: Jose Jose MD Signed: 05/16/2021 11:29 AM Workstation Name: [id number]
--- NOTE | 2021-05-16 12:07 | Vascular Lab Report ---
DUPLEX DOPPLER ULTRASOUND CAROTID, BILATERAL INDICATION / CLINICAL INFORMATION: Stroke. COMPARISON: CTA neck 05/15/2021. FINDINGS: RIGHT CAROTID: Mild intimal thickening noted in the CCA. Small amount of calcified plaque within the proximal ICA. - PLAQUE ESTIMATE (%): < 50% - CCA velocity: 89 cm/sec. - ICA peak systolic velocity: 97 cm/sec. - ICA/CCA PSV Ratio: Less than 2. Right Vertebral Artery: Antegrade flow. LEFT CAROTID: Mild intimal thickening noted within the CCA. Small amount of calcified plaque within t he bulb. - PLAQUE ESTIMATE (%): < 50% - CCA velocity: 86 cm/sec. - ICA peak systolic velocity: 88 cm/sec. - ICA/CCA PSV Ratio: Less than 2. Left Vertebral Artery: Antegrade flow. IMPRESSION: 1. Right Internal Carotid Artery: Less than 50% diameter stenosis. 2. Left Internal Carotid Artery: Less than 50% diameter stenosis. Velocity criteria are extrapolated from diameter data as defined by the Society of Radiologists in Ul trasound Consensus Conference, Radiology 2003; 229;340-346. NO STENOSIS (NORMAL) - Plaque = none; ICA PSV < 125 cm/sec; ICA/CCA PSV Ratio < 2.0 <50% STENOSIS - Plaque < 50%; ICA PSV < 125 cm/sec; ICA/CCA PSV Ratio < 2.0 50-69% STENOSIS - Plaque > 50%; ICA PSV = 125-230 cm/sec; ICA/CCA PSV Ratio = 2.0-4.0 >70% BUT <100% STENOSIS - Plaque > 50%; ICA PSV > 230 cm/sec; ICA/CCA PSV Ratio > 4.0 NEAR OCCLUSION - Plaque = visible lumen; ICA PSV = high/low/none; ICA/CCA PSV Ratio = variable TOTAL OCCLUSION - Plaque = no lumen; ICA PSV = none; ICA/CCA PSV Ratio = N/A Scribed by: Mini James RDMS, RVT Scribed: 05/16/2021 10:56 AM I have reviewed the images, agree with this report, and edited this report as needed. Signer Name: Rony Josue MD Signed: 05/16/2021 12:02 PM Workstation Name: [id number]
[2021-05-16] MEDS: ASPIRIN 325 MG TAB PO SCH (13:33)
[2021-05-16] MEDS: COLCHICINE 0.6 MG TAB PO SCH (13:33)
[2021-05-16] MEDS: CLOPIDOGREL 75 MG TAB PO SCH (13:33)
--- NOTE | 2021-05-16 14:26 | Electrocardiograph Report ---
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
--- NOTE | 2021-05-16 14:29 | Consultation ---
History of Present Illness Consult date: 05/16/21 Reason for Consult: CVA Chief complaint: Slurred Speech, unsteadiness, double vision History of present illness: 65 yo male with hypertension, hyperlipidemia, stroke, padx, gout, tobacco abuse, who presents with acute onset 4-5 days ago with unsteadiness (w/ vertigo) w/ double vision and slurred speech. Notes he was able to walk with therapy and notes unsteadiness (which is also chronic secondary to PAD (per patient)) but no vertigo. Past History Past Medical History: CAD, hypertension, hyperlipidemia, stroke, other (See HPI) Past Surgical History: Other (Cardiac stent placement) Social history: single, smoking. denies: alcohol abuse, prescription drug abuse Family history: diabetes, hypertension Medications and Allergies Allergies Allergy/AdvReac Type Severity Reaction Status Date / Time No Known Allergies Allergy Unverified 02/24/21 14:39 Home Medications Medication Instructions Recorded Confirmed Last Taken Type Colchicine [Colcrys] 0.6 mg PO DAILY 5 Days #5 tablet 02/24/21 04/16/21 Unknown Rx Aspirin 325 mg PO QDAY 04/16/21 04/16/21 04/14/21 History 1 tab Aspirin EC [Halfprin EC] 81 mg PO QDAY #30 tablet. 04/16/21 Unknown Rx Atorvastatin [Lipitor Tab] 40 mg PO 04/16/21 04/14/21 History 1 tab Clopidogrel [Plavix] 75 mg PO QDAY #30 tablet 04/16/21 Unknown Rx HYDROcodone/APAP 5-325 [[place] 1 each PO Q6HR PRN #25 tablet 04/16/21 Unknown Rx 5/325] lisinopriL [Lisinopril] 10 mg PO 04/16/21 04/14/21 History 1 tab Active Meds: Active Medications Acetaminophen (Acetaminophen 325 Mg Tab) 650 mg PO Q4H PRN PRN Reason: Pain, Mild (1-3) Hydrocodone Bitart/Acetaminophen (Hydrocodone/Acetaminophen 5-325 Mg Tab) 1 each PO Q6HR PRN PRN Reason: Pain, Moderate (4-6) Albuterol (Albuterol 2.5 Mg/3 Ml Nebu) 2.5 mg IH Q3HRT PRN PRN Reason: Shortness Of Breath Aspirin (Aspirin 325 Mg Tab) 325 mg PO QDAY [facility] Last Admin: 05/16/21 13:33 Dose: 325 mg Documented by: Atorvastatin Calcium (Atorvastatin 40 Mg Tab) 40 mg PO QHS [facility] Last Admin: 05/15/21 22:15 Dose: 40 mg Documented by: Bisacodyl (Bisacodyl 10 Mg Rect Supp) 10 mg HI QDAY PRN PRN Reason: Constipation Clopidogrel Bisulfate (Clopidogrel 75 Mg Tab) 75 mg PO QDAY [facility] Last Admin: 05/16/21 13:33 Dose: 75 mg Documented by: Colchicine (Colchicine 0.6 Mg Tab) 0.6 mg PO DAILY [facility] Last Admin: 05/16/21 13:33 Dose: 0.6 mg Documented by: Magnesium Hydroxide (Magnesium Hydroxide (Mom) Oral Liqd Udc) 30 ml PO Q4H PRN PRN Reason: Constipation Metoclopramide HCl (Metoclopramide 10 Mg Tab) 10 mg PO Q6H PRN PRN Reason: Nausea And Vomiting Ondansetron HCl (Ondansetron 4 Mg/2 Ml Inj) 4 mg IV Q8H PRN PRN Reason: Nausea And Vomiting Promethazine HCl (Promethazine 25 Mg Rect Supp) 25 mg HI Q6H PRN PRN Reason: Nausea And Vomiting Sodium Chloride (Sodium Chloride 0.9% 10 Ml Flush Syringe) 10 ml IV PRN PRN PRN Reason: LINE FLUSH Review of Systems All systems: negative (except as per HPI;) Physical Examination - Vital Signs Vital Signs: Vital Signs Temp Pulse Resp BP Pulse Ox 98.5 F 82 18 191/80 99 05/15/21 11:46 05/15/21 11:46 05/15/21 11:46 05/15/21 11:46 05/15/21 11:46 - Physical Exam Narrative exam: Gen: nad, well-nourished; Head: normocephalic; Eyes: no gaze deviation; no ptosis; ENT: normal vocalization; CVS: warm and well-perfused; Pulm: no respiratory distress; GI: appears non-distended, non-protuberant; Ext: no cyanosis at distal extremities; Skin: no acute rash at distal extremities; Heme: no pathologic bruising at distal extremities; Neuro: alert, oriented to name, age, month, year, surroundings, mild to moderate dysarthria, no aphasia, CN 2 - PERRL, visual turcios grossly intact, CN 3, 4, 6 - EOMI, CN 5 - facial sensation symmetric to light touch, CN 7 - facial movement decreased on the left (moderate), CN 8 - hearing grossly intact, CN 9, 10 - uvula midline, CN 11 - shrug symmetric, CN 12 - tongue deviates to left; Motor - at least 4+/5 in all exts except distal BUEs w/ 4-/5 and drift at LUE; Sensory - light touch symmetric, Cerebellar - fnf /hts intact, Gait - deferred secondary to fall risk; NIHSS (1a.) Level of Consciousness:0 (1b.) LOC Questions:0 (1c.) LOC Commands:0 (2.) Best Gaze: (3.) Visual:0 (4.) Facial Palsy:1 (5a.) Motor Arm, Left:1 (5b.) Motor Arm, Right:0 (6a.) Motor Leg, Left:0 (6b.) Motor Leg, Right:0 (7.) Limb Ataxia:0 (8.) Sensory:0 (9.) Best Language:0 (10.) Dysarthria:1 (11.) Extinction and Inattention:0 NIHSS Total Score: 3 Results - Laboratory Findings CBC and BMP: 05/15/21 12:32 05/15/21 12:32 Abnormal Lab Findings: Abnormal Labs 05/15/21 05/15/21 05/15/21 12:32 12:32 12:32 Hgb 11.7 L MCH 27 L RDW 17.7 H [place] % (Auto) 11.7 H Potassium 3.2 L Chloride 109.0 H Creatinine 1.6 H ALT 6 L Albumin 3.8 L HDL Cholesterol TSH 0.235 L 05/16/21 04:13 Hgb MCH RDW [place] % (Auto) Potassium Chloride Creatinine ALT Albumin HDL Cholesterol 30 L TSH Assessment and Plan 65 yo male with hypertension, hyperlipidemia, stroke, padx, gout, tobacco abuse, who presents with acute onset 4-5 days ago with unsteadiness (w/ vertigo) w/ double vision and slurred speech. Notes he was able to walk with therapy and notes unsteadiness (which is also chronic secondary to PAD (per patient)) but no vertigo. 1. Acute Ischemic Stroke: ASA 325 mg PO qday, SBP goal 160-200 mmHg and DBP 80-100 mmHg for 48 more hours. Statin therapy for a goal LDL of 70, when patient passes swallow evaluation. PT/OT/ST/Swallow evaluation. Long-term risk- factor modification, including a strict diet/exercise regimen for secondary stroke prophylaxis. Followup with Stroke Neurology in 4-6 weeks. 2. Hypertension - goal SBP 160-200 mmHg and DBP 80-100 mmHg for 48 more hours. 3. Hyperlipidemia - goal LDL of 70 w/ statin therapy if no contraindications. 4. Dysarthria / Dysphagia - st / swallow evaluation/monitoring. 5. Left-sided weakness - pt/ot evaluation/monitoring. 6. Tobacco Abuse - outpatient smoking cessation program. Og Bronson MD Neurology
[2021-05-17] MEDS ORDERED: POTASSIUM CHLORIDE ER 20 MEQ TAB PO NR (08:56)
--- NOTE | 2021-05-17 08:56 | Progress Note ---
Assessment and Plan Assessment and plan: Acute CVA Hyperlipidemia Hypertension Coronary artery disease Tobacco abuse. 05/16/2021. Follow-up echocardiogram, carotid Dopplers and MRI brain. PT/OT evaluation. Continue aspirin, Plavix and Lipitor. Await neurology consultation. 05/17/2021. MRI reveals acute right periventricular subcortical infarct. Old left cerebellar infarct. CTA of the head and neck reveals atherosclerotic calcification involving distal internal carotid arteries with mild to moderate segmental narrowing on the right. Echocardiogram reveals left ventricular normal size with systolic function normal as well. Left ventricular ejection fraction is 55 to 60%. Saline bubble contrast IV injection does not demonstrate PFO. Allow for permissive hypertension for the next 24 hours. Physical therapy recommends acute rehab. Speech therapy recommends pured diet with thin liquids. Continue PT/OT/ST. Continue aspirin, Plavix and Lipitor. Patient will be counseled on smoking cessation at discharge. History Interval history: 65 yo male with hypertension, hyperlipidemia, stroke, padx, gout, tobacco abuse, who presents with acute onset 4-5 days ago with unsteadiness (w/ vertigo) w/ double vision and slurred speech. Notes he was able to walk with therapy and notes unsteadiness (which is also chronic secondary to PAD (per patient)) but no vertigo. No new issues overnight. Hospitalist Physical - Constitutional Vitals: Temp Pulse Resp BP Pulse Ox 98.0 F 67 18 153/87 99 05/17/21 07:27 05/17/21 07:27 05/17/21 07:27 05/17/21 07:27 05/17/21 07:27 General appearance: Present: no acute distress - EENT Eyes: Present: PERRL, EOM intact ENT: hearing intact, clear oral mucosa, dentition normal - Neck Neck: Present: supple, normal ROM - Respiratory Respiratory effort: normal Respiratory: bilateral: CTA - Cardiovascular Rhythm: regular Heart Sounds: Present: S1 & S2. Absent: gallop, rub - Extremities Extremities: no ischemia, No edema, Full ROM - Abdominal General gastrointestinal: soft, non-tender, non-distended, normal bowel sounds - Integumentary Integumentary: Present: clear, warm, dry - Neurologic Neurologic: CNII-XII intact, moves all extremities HEART Score - HEART Score Troponin: Troponin T < 0.010 ng/mL (0.00-0.029) 05/15/21 12:32 Results - Labs CBC & Chem 7: 05/15/21 12:32 05/15/21 12:32 Labs: Laboratory Last Values WBC 5.3 K/mm3 (4.5-11.0) 05/15/21 12:32 RBC 4.43 M/mm3 (3.65-5.03) 05/15/21 12:32 Hgb 11.7 gm/dl (11.8-15.2) L 05/15/21 12:32 Hct 37.2 % (35.5-45.6) 05/15/21 12:32 MCV 84 fl (84-94) 05/15/21 12:32 MCH 27 pg (28-32) L 05/15/21 12:32 MCHC 32 % (32-34) 05/15/21 12:32 RDW 17.7 % (13.2-15.2) H 05/15/21 12:32 Plt Count 193 K/mm3 (140-440) 05/15/21 12:32 Lymph % (Auto) 30.5 % (13.4-35.0) 05/15/21 12:32 [place] % (Auto) 11.7 % (0.0-7.3) H 05/15/21 12:32 Eos % (Auto) 0.7 % (0.0-4.3) 05/15/21 12:32 Baso % (Auto) 0.4 % (0.0-1.8) 05/15/21 12:32 Lymph # (Auto) 1.6 K/mm3 (1.2-5.4) 05/15/21 12:32 [place] # (Auto) 0.6 K/mm3 (0.0-0.8) 05/15/21 12:32 Eos # (Auto) 0.0 K/mm3 (0.0-0.4) 05/15/21 12:32 Baso # (Auto) 0.0 K/mm3 (0.0-0.1) 05/15/21 12:32 Seg Neutrophils % 56.7 % (40.0-70.0) 05/15/21 12:32 Seg Neutrophils # 3.0 K/mm3 (1.8-7.7) 05/15/21 12:32 PT 13.9 Sec. (12.2-14.9) 05/15/21 12:32 INR 1.02 (0.87-1.13) 05/15/21 12:32 APTT 25.7 Sec. (24.2-36.6) 05/15/21 12:32 Thrombin Time 17.3 Sec. (15.1-19.6) 05/15/21 12:32 Sodium 143 mmol/L (137-145) 05/15/21 12:32 Potassium 3.2 mmol/L (3.6-5.0) L 05/15/21 12:32 Chloride 109.0 mmol/L (98-107) H 05/15/21 12:32 Carbon Dioxide 24 mmol/L (22-30) 05/15/21 12:32 Anion Gap 13 mmol/L 05/15/21 12:32 BUN 12 mg/dL (9-20) 05/15/21 12:32 Creatinine 1.6 mg/dL (0.8-1.3) H 05/15/21 12:32 Estimated GFR 53 ml/min 05/15/21 12:32 BUN/Creatinine Ratio 8 % 05/15/21 12:32 Glucose 99 mg/dL (75-100) 05/15/21 12:32 Calcium 9.4 mg/dL (8.4-10.2) 05/15/21 12:32 Total Bilirubin 0.50 mg/dL (0.1-1.2) 05/15/21 12:32 AST 16 units/L (5-40) 05/15/21 12:32 ALT 6 units/L (7-56) L 05/15/21 12:32 Alkaline Phosphatase 82 units/L (35-129) 05/15/21 12:32 Total Creatine Kinase 70 units/L (55-170) 05/15/21 12:32 CK-MB (CK-2) < 1.0 ng/mL (0.0-4.0) 05/15/21 12:32 CK-MB (CK-2) Rel Index 1.4 (0-4) 05/15/21 12:32 Troponin T < 0.010 ng/mL (0.00-0.029) 05/15/21 12:32 Total Protein 7.0 g/dL (6.3-8.2) 05/15/21 12:32 Albumin 3.8 g/dL (3.9-5) L 05/15/21 12:32 Albumin/Globulin Ratio 1.2 % 05/15/21 12:32 Triglycerides 65 mg/dL (2-149) 05/16/21 04:13 Cholesterol 113 mg/dL (50-199) 05/16/21 04:13 LDL Cholesterol Direct 75 mg/dL (50-130) 05/16/21 04:13 HDL Cholesterol 30 mg/dL (40-59) L 05/16/21 04:13 Cholesterol/HDL Ratio 3.76 % 05/16/21 04:13 TSH 0.235 mlU/mL (0.270-4.200) L 05/15/21 12:32 Plasma/Serum Alcohol < 0.01 % (0-0.07) 05/15/21 12:32 Drake/IV: Voiding Method Urinal Active Medications - Current Medications Current Medications: Generic Name Dose Route Start Last Admin Trade Name Freq PRN Reason Stop Dose Admin Acetaminophen 650 mg 05/15/21 14:44 Acetaminophen 325 Mg Tab PO Q4H PRN Pain, Mild (1-3) Hydrocodone Bitart/Acetaminophen 1 each 05/15/21 14:46 Hydrocodone/Acetaminophen 5-325 Mg Tab PO Q6HR PRN Pain, Moderate (4-6) Albuterol 2.5 mg 05/15/21 14:44 Albuterol 2.5 Mg/3 Ml Nebu IH Q3HRT PRN Shortness Of Breath Aspirin 325 mg 05/16/21 10:00 05/16/21 13:33 Aspirin 325 Mg Tab PO 325 mg QDAY LILIAN Administration Atorvastatin Calcium 40 mg 05/15/21 22:00 05/16/21 21:10 Atorvastatin 40 Mg Tab PO 40 mg QHS LILIAN Administration Bisacodyl 10 mg 05/15/21 14:44 Bisacodyl [address] QDAY PRN Constipation Clopidogrel Bisulfate 75 mg 05/16/21 10:00 05/16/21 13:33 Clopidogrel 75 Mg Tab PO 75 mg QDAY LILIAN Administration Colchicine 0.6 mg 05/16/21 10:00 05/16/21 13:33 Colchicine 0.6 Mg Tab PO 0.6 mg DAILY LILIAN Administration Magnesium Hydroxide 30 ml 05/15/21 14:44 Magnesium Hydroxide (Mom) Oral Liqd Udc PO Q4H PRN Constipation Metoclopramide HCl 10 mg 05/15/21 14:44 Metoclopramide 10 Mg Tab PO Q6H PRN Nausea And Vomiting Ondansetron HCl 4 mg 05/15/21 14:44 Ondansetron 4 Mg/2 Ml Inj IV Q8H PRN Nausea And Vomiting Promethazine HCl 25 mg 05/15/21 14:44 Promethazine [address] Q6H PRN Nausea And Vomiting Sodium Chloride 10 ml 05/15/21 14:44 Sodium Chloride 0.9% 10 Ml Flush Syringe IV PRN PRN LINE FLUSH
[2021-05-17] MEDS: CLOPIDOGREL 75 MG TAB PO SCH (08:59)
[2021-05-17] MEDS: ASPIRIN 325 MG TAB PO SCH (08:59)
[2021-05-17] MEDS: COLCHICINE 0.6 MG TAB PO SCH (09:00)
--- NOTE | 2021-05-18 09:09 | Progress Note ---
Assessment and Plan Assessment and plan: Acute CVA Hyperlipidemia Hypertension Coronary artery disease Tobacco abuse. 05/16/2021. Follow-up echocardiogram, carotid Dopplers and MRI brain. PT/OT evaluation. Continue aspirin, Plavix and Lipitor. Await neurology consultation. 05/17/2021. MRI reveals acute right periventricular subcortical infarct. Old left cerebellar infarct. CTA of the head and neck reveals atherosclerotic calcification involving distal internal carotid arteries with mild to moderate segmental narrowing on the right. Echocardiogram reveals left ventricular normal size with systolic function normal as well. Left ventricular ejection fraction is 55 to 60%. Saline bubble contrast IV injection does not demonstrate PFO. Allow for permissive hypertension for the next 24 hours. Physical therapy recommends acute rehab. Speech therapy recommends pured diet with thin liquids. Continue PT/OT/ST. Continue aspirin, Plavix and Lipitor. Patient will be counseled on smoking cessation at discharge. 05/18/2021. Continue PT/OT/ST. Continue aspirin Plavix and Lipitor. Physical therapy recommends acute rehab. Await placement. History Interval history: 65 yo male with hypertension, hyperlipidemia, stroke, padx, gout, tobacco abuse, who presents with acute onset 4-5 days ago with unsteadiness (w/ vertigo) w/ double vision and slurred speech. Notes he was able to walk with therapy and notes unsteadiness (which is also chronic secondary to PAD (per patient)) but no vertigo. No new issues overnight. Hospitalist Physical - Constitutional Vitals: Temp Pulse Resp BP Pulse Ox 98.2 F 66 18 142/74 95 05/18/21 07:55 05/18/21 07:55 05/18/21 07:55 05/18/21 07:55 05/18/21 07:55 General appearance: Present: no acute distress - EENT Eyes: Present: PERRL, EOM intact ENT: hearing intact, clear oral mucosa, dentition normal - Neck Neck: Present: supple, normal ROM - Respiratory Respiratory effort: normal Respiratory: bilateral: CTA - Cardiovascular Rhythm: regular Heart Sounds: Present: S1 & S2. Absent: gallop, rub - Extremities Extremities: no ischemia, No edema, Full ROM - Abdominal General gastrointestinal: soft, non-tender, non-distended, normal bowel sounds - Integumentary Integumentary: Present: clear, warm, dry - Neurologic Neurologic: CNII-XII intact, moves all extremities HEART Score - HEART Score Troponin: Troponin T < 0.010 ng/mL (0.00-0.029) 05/15/21 12:32 Results - Labs CBC & Chem 7: 05/15/21 12:32 05/15/21 12:32 Labs: Laboratory Last Values WBC 5.3 K/mm3 (4.5-11.0) 05/15/21 12:32 RBC 4.43 M/mm3 (3.65-5.03) 05/15/21 12:32 Hgb 11.7 gm/dl (11.8-15.2) L 05/15/21 12:32 Hct 37.2 % (35.5-45.6) 05/15/21 12:32 MCV 84 fl (84-94) 05/15/21 12:32 MCH 27 pg (28-32) L 05/15/21 12:32 MCHC 32 % (32-34) 05/15/21 12:32 RDW 17.7 % (13.2-15.2) H 05/15/21 12:32 Plt Count 193 K/mm3 (140-440) 05/15/21 12:32 Lymph % (Auto) 30.5 % (13.4-35.0) 05/15/21 12:32 [place] % (Auto) 11.7 % (0.0-7.3) H 05/15/21 12:32 Eos % (Auto) 0.7 % (0.0-4.3) 05/15/21 12:32 Baso % (Auto) 0.4 % (0.0-1.8) 05/15/21 12:32 Lymph # (Auto) 1.6 K/mm3 (1.2-5.4) 05/15/21 12:32 [place] # (Auto) 0.6 K/mm3 (0.0-0.8) 05/15/21 12:32 Eos # (Auto) 0.0 K/mm3 (0.0-0.4) 05/15/21 12:32 Baso # (Auto) 0.0 K/mm3 (0.0-0.1) 05/15/21 12:32 Seg Neutrophils % 56.7 % (40.0-70.0) 05/15/21 12:32 Seg Neutrophils # 3.0 K/mm3 (1.8-7.7) 05/15/21 12:32 PT 13.9 Sec. (12.2-14.9) 05/15/21 12:32 INR 1.02 (0.87-1.13) 05/15/21 12:32 APTT 25.7 Sec. (24.2-36.6) 05/15/21 12:32 Thrombin Time 17.3 Sec. (15.1-19.6) 05/15/21 12:32 Sodium 143 mmol/L (137-145) 05/15/21 12:32 Potassium 3.2 mmol/L (3.6-5.0) L 05/15/21 12:32 Chloride 109.0 mmol/L (98-107) H 05/15/21 12:32 Carbon Dioxide 24 mmol/L (22-30) 05/15/21 12:32 Anion Gap 13 mmol/L 05/15/21 12:32 BUN 12 mg/dL (9-20) 05/15/21 12:32 Creatinine 1.6 mg/dL (0.8-1.3) H 05/15/21 12:32 Estimated GFR 53 ml/min 05/15/21 12:32 BUN/Creatinine Ratio 8 % 05/15/21 12:32 Glucose 99 mg/dL (75-100) 05/15/21 12:32 Calcium 9.4 mg/dL (8.4-10.2) 05/15/21 12:32 Total Bilirubin 0.50 mg/dL (0.1-1.2) 05/15/21 12:32 AST 16 units/L (5-40) 05/15/21 12:32 ALT 6 units/L (7-56) L 05/15/21 12:32 Alkaline Phosphatase 82 units/L (35-129) 05/15/21 12:32 Total Creatine Kinase 70 units/L (55-170) 05/15/21 12:32 CK-MB (CK-2) < 1.0 ng/mL (0.0-4.0) 05/15/21 12:32 CK-MB (CK-2) Rel Index 1.4 (0-4) 05/15/21 12:32 Troponin T < 0.010 ng/mL (0.00-0.029) 05/15/21 12:32 Total Protein 7.0 g/dL (6.3-8.2) 05/15/21 12:32 Albumin 3.8 g/dL (3.9-5) L 05/15/21 12:32 Albumin/Globulin Ratio 1.2 % 05/15/21 12:32 Triglycerides 65 mg/dL (2-149) 05/16/21 04:13 Cholesterol 113 mg/dL (50-199) 05/16/21 04:13 LDL Cholesterol Direct 75 mg/dL (50-130) 05/16/21 04:13 HDL Cholesterol 30 mg/dL (40-59) L 05/16/21 04:13 Cholesterol/HDL Ratio 3.76 % 05/16/21 04:13 TSH 0.235 mlU/mL (0.270-4.200) L 05/15/21 12:32 Plasma/Serum Alcohol < 0.01 % (0-0.07) 05/15/21 12:32 Drake/IV: Voiding Method Urinal Active Medications - Current Medications Current Medications: Generic Name Dose Route Start Last Admin Trade Name Freq PRN Reason Stop Dose Admin Acetaminophen 650 mg 05/15/21 14:44 Acetaminophen 325 Mg Tab PO Q4H PRN Pain, Mild (1-3) Hydrocodone Bitart/Acetaminophen 1 each 05/15/21 14:46 Hydrocodone/Acetaminophen 5-325 Mg Tab PO Q6HR PRN Pain, Moderate (4-6) Albuterol 2.5 mg 05/15/21 14:44 Albuterol 2.5 Mg/3 Ml Nebu IH Q3HRT PRN Shortness Of Breath Aspirin 325 mg 05/16/21 10:00 05/17/21 08:59 Aspirin 325 Mg Tab PO 325 mg QDAY LILIAN Administration Atorvastatin Calcium 40 mg 05/15/21 22:00 05/17/21 21:27 Atorvastatin 40 Mg Tab PO 40 mg QHS LILIAN Administration Bisacodyl 10 mg 05/15/21 14:44 Bisacodyl 10 Mg Rect Supp PA QDAY PRN Constipation Clopidogrel Bisulfate 75 mg 05/16/21 10:00 05/17/21 08:59 Clopidogrel 75 Mg Tab PO 75 mg QDAY LILIAN Administration Colchicine 0.6 mg 05/16/21 10:00 05/17/21 09:00 Colchicine 0.6 Mg Tab PO 0.6 mg DAILY LILIAN Administration Magnesium Hydroxide 30 ml 05/15/21 14:44 Magnesium Hydroxide (Mom) Oral Liqd Udc PO Q4H PRN Constipation Metoclopramide HCl 10 mg 05/15/21 14:44 Metoclopramide 10 Mg Tab PO Q6H PRN Nausea And Vomiting Ondansetron HCl 4 mg 05/15/21 14:44 Ondansetron 4 Mg/2 Ml Inj IV Q8H PRN Nausea And Vomiting Promethazine HCl 25 mg 05/15/21 14:44 Promethazine 25 Mg Rect Supp PA Q6H PRN Nausea And Vomiting Sodium Chloride 10 ml 05/15/21 14:44 Sodium Chloride 0.9% 10 Ml Flush Syringe IV PRN PRN LINE FLUSH
[2021-05-18] MEDS: CLOPIDOGREL 75 MG TAB PO SCH (09:14)
[2021-05-18] MEDS: ASPIRIN 325 MG TAB PO SCH (09:14)
[2021-05-18] MEDS: COLCHICINE 0.6 MG TAB PO SCH (09:14)
--- NOTE | 2021-05-19 08:49 | Progress Note ---
Assessment and Plan Assessment and plan: Acute CVA Hyperlipidemia Hypertension Coronary artery disease Tobacco abuse. 05/16/2021. Follow-up echocardiogram, carotid Dopplers and MRI brain. PT/OT evaluation. Continue aspirin, Plavix and Lipitor. Await neurology consultation. 05/17/2021. MRI reveals acute right periventricular subcortical infarct. Old left cerebellar infarct. CTA of the head and neck reveals atherosclerotic calcification involving distal internal carotid arteries with mild to moderate segmental narrowing on the right. Echocardiogram reveals left ventricular normal size with systolic function normal as well. Left ventricular ejection fraction is 55 to 60%. Saline bubble contrast IV injection does not demonstrate PFO. Allow for permissive hypertension for the next 24 hours. Physical therapy recommends acute rehab. Speech therapy recommends pured diet with thin liquids. Continue PT/OT/ST. Continue aspirin, Plavix and Lipitor. Patient will be counseled on smoking cessation at discharge. 05/18/2021. Continue PT/OT/ST. Continue aspirin Plavix and Lipitor. Physical therapy recommends acute rehab. Await placement. 05/19/2021. Continue PT/OT/ST. Continue aspirin Plavix and Lipitor. Physical therapy recommends acute rehab. Await placement. History Interval history: 65 yo male with hypertension, hyperlipidemia, stroke, padx, gout, tobacco abuse, who presents with acute onset 4-5 days ago with unsteadiness (w/ vertigo) w/ double vision and slurred speech. Notes he was able to walk with therapy and notes unsteadiness (which is also chronic secondary to PAD (per patient)) but no vertigo. No new issues overnight. Hospitalist Physical - Constitutional Vitals: Temp Pulse Resp BP Pulse Ox 98.0 F 82 6 L 170/83 96 05/19/21 08:17 05/19/21 08:17 05/19/21 08:17 05/19/21 08:17 05/19/21 08:17 General appearance: Present: no acute distress - EENT Eyes: Present: PERRL, EOM intact ENT: hearing intact, clear oral mucosa, dentition normal - Neck Neck: Present: supple, normal ROM - Respiratory Respiratory effort: normal Respiratory: bilateral: CTA - Cardiovascular Rhythm: regular Heart Sounds: Present: S1 & S2. Absent: gallop, rub - Extremities Extremities: no ischemia, No edema, Full ROM - Abdominal General gastrointestinal: soft, non-tender, non-distended, normal bowel sounds - Integumentary Integumentary: Present: clear, warm, dry - Neurologic Neurologic: CNII-XII intact, moves all extremities HEART Score - HEART Score Troponin: Troponin T < 0.010 ng/mL (0.00-0.029) 05/15/21 12:32 Results - Labs CBC & Chem 7: 05/15/21 12:32 05/15/21 12:32 Labs: Laboratory Last Values WBC 5.3 K/mm3 (4.5-11.0) 05/15/21 12:32 RBC 4.43 M/mm3 (3.65-5.03) 05/15/21 12:32 Hgb 11.7 gm/dl (11.8-15.2) L 05/15/21 12:32 Hct 37.2 % (35.5-45.6) 05/15/21 12:32 MCV 84 fl (84-94) 05/15/21 12:32 MCH 27 pg (28-32) L 05/15/21 12:32 MCHC 32 % (32-34) 05/15/21 12:32 RDW 17.7 % (13.2-15.2) H 05/15/21 12:32 Plt Count 193 K/mm3 (140-440) 05/15/21 12:32 Lymph % (Auto) 30.5 % (13.4-35.0) 05/15/21 12:32 [place] % (Auto) 11.7 % (0.0-7.3) H 05/15/21 12:32 Eos % (Auto) 0.7 % (0.0-4.3) 05/15/21 12:32 Baso % (Auto) 0.4 % (0.0-1.8) 05/15/21 12:32 Lymph # (Auto) 1.6 K/mm3 (1.2-5.4) 05/15/21 12:32 [place] # (Auto) 0.6 K/mm3 (0.0-0.8) 05/15/21 12:32 Eos # (Auto) 0.0 K/mm3 (0.0-0.4) 05/15/21 12:32 Baso # (Auto) 0.0 K/mm3 (0.0-0.1) 05/15/21 12:32 Seg Neutrophils % 56.7 % (40.0-70.0) 05/15/21 12:32 Seg Neutrophils # 3.0 K/mm3 (1.8-7.7) 05/15/21 12:32 PT 13.9 Sec. (12.2-14.9) 05/15/21 12:32 INR 1.02 (0.87-1.13) 05/15/21 12:32 APTT 25.7 Sec. (24.2-36.6) 05/15/21 12:32 Thrombin Time 17.3 Sec. (15.1-19.6) 05/15/21 12:32 Sodium 143 mmol/L (137-145) 05/15/21 12:32 Potassium 3.2 mmol/L (3.6-5.0) L 05/15/21 12:32 Chloride 109.0 mmol/L (98-107) H 05/15/21 12:32 Carbon Dioxide 24 mmol/L (22-30) 05/15/21 12:32 Anion Gap 13 mmol/L 05/15/21 12:32 BUN 12 mg/dL (9-20) 05/15/21 12:32 Creatinine 1.6 mg/dL (0.8-1.3) H 05/15/21 12:32 Estimated GFR 53 ml/min 05/15/21 12:32 BUN/Creatinine Ratio 8 % 05/15/21 12:32 Glucose 99 mg/dL (75-100) 05/15/21 12:32 Calcium 9.4 mg/dL (8.4-10.2) 05/15/21 12:32 Total Bilirubin 0.50 mg/dL (0.1-1.2) 05/15/21 12:32 AST 16 units/L (5-40) 05/15/21 12:32 ALT 6 units/L (7-56) L 05/15/21 12:32 Alkaline Phosphatase 82 units/L (35-129) 05/15/21 12:32 Total Creatine Kinase 70 units/L (55-170) 05/15/21 12:32 CK-MB (CK-2) < 1.0 ng/mL (0.0-4.0) 05/15/21 12:32 CK-MB (CK-2) Rel Index 1.4 (0-4) 05/15/21 12:32 Troponin T < 0.010 ng/mL (0.00-0.029) 05/15/21 12:32 Total Protein 7.0 g/dL (6.3-8.2) 05/15/21 12:32 Albumin 3.8 g/dL (3.9-5) L 05/15/21 12:32 Albumin/Globulin Ratio 1.2 % 05/15/21 12:32 Triglycerides 65 mg/dL (2-149) 05/16/21 04:13 Cholesterol 113 mg/dL (50-199) 05/16/21 04:13 LDL Cholesterol Direct 75 mg/dL (50-130) 05/16/21 04:13 HDL Cholesterol 30 mg/dL (40-59) L 05/16/21 04:13 Cholesterol/HDL Ratio 3.76 % 05/16/21 04:13 TSH 0.235 mlU/mL (0.270-4.200) L 05/15/21 12:32 Plasma/Serum Alcohol < 0.01 % (0-0.07) 05/15/21 12:32 Drake/IV: Voiding Method Urinal Active Medications - Current Medications Current Medications: Generic Name Dose Route Start Last Admin Trade Name Freq PRN Reason Stop Dose Admin Acetaminophen 650 mg 05/15/21 14:44 Acetaminophen 325 Mg Tab PO Q4H PRN Pain, Mild (1-3) Hydrocodone Bitart/Acetaminophen 1 each 05/15/21 14:46 Hydrocodone/Acetaminophen 5-325 Mg Tab PO Q6HR PRN Pain, Moderate (4-6) Albuterol 2.5 mg 05/15/21 14:44 Albuterol 2.5 Mg/3 Ml Nebu IH Q3HRT PRN Shortness Of Breath Aspirin 325 mg 05/16/21 10:00 05/18/21 09:14 Aspirin 325 Mg Tab PO 325 mg QDAY LILIAN Administration Atorvastatin Calcium 40 mg 05/15/21 22:00 05/18/21 21:17 Atorvastatin 40 Mg Tab PO 40 mg QHS LILIAN Administration Bisacodyl 10 mg 05/15/21 14:44 Bisacodyl 10 Mg Rect Supp RI QDAY PRN Constipation Clopidogrel Bisulfate 75 mg 05/16/21 10:00 05/18/21 09:14 Clopidogrel 75 Mg Tab PO 75 mg QDAY [place] Administration Colchicine 0.6 mg 05/16/21 10:00 05/18/21 09:14 Colchicine 0.6 Mg Tab PO 0.6 mg DAILY LILIAN Administration Magnesium Hydroxide 30 ml 05/15/21 14:44 Magnesium Hydroxide (Mom) Oral Liqd Udc PO Q4H PRN Constipation Metoclopramide HCl 10 mg 05/15/21 14:44 Metoclopramide 10 Mg Tab PO Q6H PRN Nausea And Vomiting Ondansetron HCl 4 mg 05/15/21 14:44 Ondansetron 4 Mg/2 Ml Inj IV Q8H PRN Nausea And Vomiting Promethazine HCl 25 mg 05/15/21 14:44 Promethazine 25 Mg Rect Supp RI Q6H PRN Nausea And Vomiting Sodium Chloride 10 ml 05/15/21 14:44 Sodium Chloride 0.9% 10 Ml Flush Syringe IV PRN PRN LINE FLUSH
[2021-05-19] MEDS: ASPIRIN 325 MG TAB PO SCH (12:19)
[2021-05-19] MEDS: CLOPIDOGREL 75 MG TAB PO SCH (12:19)
[2021-05-19] MEDS: COLCHICINE 0.6 MG TAB PO SCH (12:19)
--- NOTE | 2021-05-20 07:37 | Progress Note ---
Assessment and Plan Assessment and plan: Acute CVA Hyperlipidemia Hypertension Coronary artery disease Tobacco abuse. 05/16/2021. Follow-up echocardiogram, carotid Dopplers and MRI brain. PT/OT evaluation. Continue aspirin, Plavix and Lipitor. Await neurology consultation. 05/17/2021. MRI reveals acute right periventricular subcortical infarct. Old left cerebellar infarct. CTA of the head and neck reveals atherosclerotic calcification involving distal internal carotid arteries with mild to moderate segmental narrowing on the right. Echocardiogram reveals left ventricular normal size with systolic function normal as well. Left ventricular ejection fraction is 55 to 60%. Saline bubble contrast IV injection does not demonstrate PFO. Allow for permissive hypertension for the next 24 hours. Physical therapy recommends acute rehab. Speech therapy recommends pured diet with thin liquids. Continue PT/OT/ST. Continue aspirin, Plavix and Lipitor. Patient will be counseled on smoking cessation at discharge. 05/18/2021. Continue PT/OT/ST. Continue aspirin Plavix and Lipitor. Physical therapy recommends acute rehab. Await placement. 05/19/2021. Continue PT/OT/ST. Continue aspirin Plavix and Lipitor. Physical therapy recommends acute rehab. Await placement. 05/20/2021. Will discuss with case management disposition. Physical therapy recommends acute rehab. Awaiting placement. Continue PT/OT/ST. Continue aspirin, Plavix and Lipitor History Interval history: 65 yo male with hypertension, hyperlipidemia, stroke, padx, gout, tobacco abuse, who presents with acute onset 4-5 days ago with unsteadiness (w/ vertigo) w/ double vision and slurred speech. Notes he was able to walk with therapy and notes unsteadiness (which is also chronic secondary to PAD (per patient)) but no vertigo. No new issues overnight. Hospitalist Physical - Constitutional Vitals: Temp Pulse Resp BP Pulse Ox 98.0 F 69 18 144/73 100 05/20/21 04:17 05/20/21 05:00 05/20/21 04:17 05/20/21 04:17 05/20/21 04:17 General appearance: Present: no acute distress - EENT Eyes: Present: PERRL, EOM intact ENT: hearing intact, clear oral mucosa, dentition normal - Neck Neck: Present: supple, normal ROM - Respiratory Respiratory effort: normal Respiratory: bilateral: CTA - Cardiovascular Rhythm: regular Heart Sounds: Present: S1 & S2. Absent: gallop, rub - Extremities Extremities: no ischemia, No edema, Full ROM - Abdominal General gastrointestinal: soft, non-tender, non-distended, normal bowel sounds - Integumentary Integumentary: Present: clear, warm, dry - Neurologic Neurologic: CNII-XII intact, moves all extremities HEART Score - HEART Score Troponin: Troponin T < 0.010 ng/mL (0.00-0.029) 05/15/21 12:32 Results - Labs CBC & Chem 7: 05/15/21 12:32 05/15/21 12:32 Labs: Laboratory Last Values WBC 5.3 K/mm3 (4.5-11.0) 05/15/21 12:32 RBC 4.43 M/mm3 (3.65-5.03) 05/15/21 12:32 Hgb 11.7 gm/dl (11.8-15.2) L 05/15/21 12:32 Hct 37.2 % (35.5-45.6) 05/15/21 12:32 MCV 84 fl (84-94) 05/15/21 12:32 MCH 27 pg (28-32) L 05/15/21 12:32 MCHC 32 % (32-34) 05/15/21 12:32 RDW 17.7 % (13.2-15.2) H 05/15/21 12:32 Plt Count 193 K/mm3 (140-440) 05/15/21 12:32 Lymph % (Auto) 30.5 % (13.4-35.0) 05/15/21 12:32 [place] % (Auto) 11.7 % (0.0-7.3) H 05/15/21 12:32 Eos % (Auto) 0.7 % (0.0-4.3) 05/15/21 12:32 Baso % (Auto) 0.4 % (0.0-1.8) 05/15/21 12:32 Lymph # (Auto) 1.6 K/mm3 (1.2-5.4) 05/15/21 12:32 [place] # (Auto) 0.6 K/mm3 (0.0-0.8) 05/15/21 12:32 Eos # (Auto) 0.0 K/mm3 (0.0-0.4) 05/15/21 12:32 Baso # (Auto) 0.0 K/mm3 (0.0-0.1) 05/15/21 12:32 Seg Neutrophils % 56.7 % (40.0-70.0) 05/15/21 12:32 Seg Neutrophils # 3.0 K/mm3 (1.8-7.7) 05/15/21 12:32 PT 13.9 Sec. (12.2-14.9) 05/15/21 12:32 INR 1.02 (0.87-1.13) 05/15/21 12:32 APTT 25.7 Sec. (24.2-36.6) 05/15/21 12:32 Thrombin Time 17.3 Sec. (15.1-19.6) 05/15/21 12:32 Sodium 143 mmol/L (137-145) 05/15/21 12:32 Potassium 3.2 mmol/L (3.6-5.0) L 05/15/21 12:32 Chloride 109.0 mmol/L (98-107) H 05/15/21 12:32 Carbon Dioxide 24 mmol/L (22-30) 05/15/21 12:32 Anion Gap 13 mmol/L 05/15/21 12:32 BUN 12 mg/dL (9-20) 05/15/21 12:32 Creatinine 1.6 mg/dL (0.8-1.3) H 05/15/21 12:32 Estimated GFR 53 ml/min 05/15/21 12:32 BUN/Creatinine Ratio 8 % 05/15/21 12:32 Glucose 99 mg/dL (75-100) 05/15/21 12:32 Calcium 9.4 mg/dL (8.4-10.2) 05/15/21 12:32 Total Bilirubin 0.50 mg/dL (0.1-1.2) 05/15/21 12:32 AST 16 units/L (5-40) 05/15/21 12:32 ALT 6 units/L (7-56) L 05/15/21 12:32 Alkaline Phosphatase 82 units/L (35-129) 05/15/21 12:32 Total Creatine Kinase 70 units/L (55-170) 05/15/21 12:32 CK-MB (CK-2) < 1.0 ng/mL (0.0-4.0) 05/15/21 12:32 CK-MB (CK-2) Rel Index 1.4 (0-4) 05/15/21 12:32 Troponin T < 0.010 ng/mL (0.00-0.029) 05/15/21 12:32 Total Protein 7.0 g/dL (6.3-8.2) 05/15/21 12:32 Albumin 3.8 g/dL (3.9-5) L 05/15/21 12:32 Albumin/Globulin Ratio 1.2 % 05/15/21 12:32 Triglycerides 65 mg/dL (2-149) 05/16/21 04:13 Cholesterol 113 mg/dL (50-199) 05/16/21 04:13 LDL Cholesterol Direct 75 mg/dL (50-130) 05/16/21 04:13 HDL Cholesterol 30 mg/dL (40-59) L 05/16/21 04:13 Cholesterol/HDL Ratio 3.76 % 05/16/21 04:13 TSH 0.235 mlU/mL (0.270-4.200) L 05/15/21 12:32 Plasma/Serum Alcohol < 0.01 % (0-0.07) 05/15/21 12:32 Drake/IV: Voiding Method Urinal Active Medications - Current Medications Current Medications: Generic Name Dose Route Start Last Admin Trade Name Freq PRN Reason Stop Dose Admin Acetaminophen 650 mg 05/15/21 14:44 05/19/21 12:20 Acetaminophen 325 Mg Tab PO 650 mg Q4H PRN Administration Pain, Mild (1-3) Hydrocodone Bitart/Acetaminophen 1 each 05/15/21 14:46 Hydrocodone/Acetaminophen 5-325 Mg Tab PO Q6HR PRN Pain, Moderate (4-6) Albuterol 2.5 mg 05/15/21 14:44 Albuterol 2.5 Mg/3 Ml Nebu IH Q3HRT PRN Shortness Of Breath Aspirin 325 mg 05/16/21 10:00 05/19/21 12:19 Aspirin 325 Mg Tab PO 325 mg QDAY LILIAN Administration Atorvastatin Calcium 40 mg 05/15/21 22:00 05/19/21 21:43 Atorvastatin 40 Mg Tab PO 40 mg QHS LILIAN Administration Bisacodyl 10 mg 05/15/21 14:44 Bisacodyl 10 Mg Rect Supp NV QDAY PRN Constipation Clopidogrel Bisulfate 75 mg 05/16/21 10:00 05/19/21 12:19 Clopidogrel 75 Mg Tab PO 75 mg QDAY LILIAN Administration Colchicine 0.6 mg 05/16/21 10:00 05/19/21 12:19 Colchicine 0.6 Mg Tab PO 0.6 mg DAILY LILIAN Administration Magnesium Hydroxide 30 ml 05/15/21 14:44 Magnesium Hydroxide (Mom) Oral Liqd Udc PO Q4H PRN Constipation Metoclopramide HCl 10 mg 05/15/21 14:44 Metoclopramide 10 Mg Tab PO Q6H PRN Nausea And Vomiting Ondansetron HCl 4 mg 05/15/21 14:44 Ondansetron 4 Mg/2 Ml Inj IV Q8H PRN Nausea And Vomiting Promethazine HCl 25 mg 05/15/21 14:44 Promethazine 25 Mg Rect Supp NV Q6H PRN Nausea And Vomiting Sodium Chloride 10 ml 05/15/21 14:44 Sodium Chloride 0.9% 10 Ml Flush Syringe IV PRN PRN LINE FLUSH
[2021-05-20] MEDS: COLCHICINE 0.6 MG TAB PO SCH (12:25)
[2021-05-20] MEDS: ASPIRIN 325 MG TAB PO SCH (12:25)
[2021-05-20] MEDS: CLOPIDOGREL 75 MG TAB PO SCH (12:29)
--- NOTE | 2021-05-21 09:19 | Progress Note ---
Assessment and Plan Assessment and plan: Acute CVA Hyperlipidemia Hypertension Coronary artery disease Tobacco abuse. 05/16/2021. Follow-up echocardiogram, carotid Dopplers and MRI brain. PT/OT evaluation. Continue aspirin, Plavix and Lipitor. Await neurology consultation. 05/17/2021. MRI reveals acute right periventricular subcortical infarct. Old left cerebellar infarct. CTA of the head and neck reveals atherosclerotic calcification involving distal internal carotid arteries with mild to moderate segmental narrowing on the right. Echocardiogram reveals left ventricular normal size with systolic function normal as well. Left ventricular ejection fraction is 55 to 60%. Saline bubble contrast IV injection does not demonstrate PFO. Allow for permissive hypertension for the next 24 hours. Physical therapy recommends acute rehab. Speech therapy recommends pured diet with thin liquids. Continue PT/OT/ST. Continue aspirin, Plavix and Lipitor. Patient will be counseled on smoking cessation at discharge. 05/18/2021. Continue PT/OT/ST. Continue aspirin Plavix and Lipitor. Physical therapy recommends acute rehab. Await placement. 05/19/2021. Continue PT/OT/ST. Continue aspirin Plavix and Lipitor. Physical therapy recommends acute rehab. Await placement. 05/20/2021. Will discuss with case management disposition. Physical therapy recommends acute rehab. Awaiting placement. Continue PT/OT/ST. Continue aspirin, Plavix and Lipitor 05/21/2021; pending acute rehab placement. Patient had peripheral arterial disease and had stenting of the right and left common iliac and anterior iliac arteries. Continue with aspirin Plavix and statin. History Interval history: Patient was seen and evaluated this morning Patient has slurred speech with left lower extremity weakness Left facial droop Hospitalist Physical - Physical exam Narrative exam: Not in cardiopulmonary distress. The patient appeared well nourished and normally developed. Vital signs as documented. Head exam is unremarkable. No scleral icterus . Neck is without jugular venous distension, thyromegaly, or carotid bruits. Lungs are clear to auscultation. Cardiac exam reveals regular rate and Rhythm. Abdominal exam reveals normal bowel sounds, nontender, no organomegaly. Extremities are nonedematous and both femoral and pedal pulses are normal. [employer]AL [employer]CH[employer]M: Alert and oriented 3. Slurred speech, left leg weakness. Left facial droop. - Constitutional Vitals: Temp Pulse Resp BP Pulse Ox 98.2 F 78 15 137/80 98 05/21/21 07:58 05/21/21 08:24 05/21/21 08:24 05/21/21 07:58 05/21/21 08:24 General appearance: Present: no acute distress HEART Score - HEART Score Troponin: Troponin T < 0.010 ng/mL (0.00-0.029) 05/15/21 12:32 Results - Labs CBC & Chem 7: 05/15/21 12:32 05/15/21 12:32 Labs: Laboratory Last Values WBC 5.3 K/mm3 (4.5-11.0) 05/15/21 12:32 RBC 4.43 M/mm3 (3.65-5.03) 05/15/21 12:32 Hgb 11.7 gm/dl (11.8-15.2) L 05/15/21 12:32 Hct 37.2 % (35.5-45.6) 05/15/21 12:32 MCV 84 fl (84-94) 05/15/21 12:32 MCH 27 pg (28-32) L 05/15/21 12:32 MCHC 32 % (32-34) 05/15/21 12:32 RDW 17.7 % (13.2-15.2) H 05/15/21 12:32 Plt Count 193 K/mm3 (140-440) 05/15/21 12:32 Lymph % (Auto) 30.5 % (13.4-35.0) 05/15/21 12:32 [place] % (Auto) 11.7 % (0.0-7.3) H 05/15/21 12:32 Eos % (Auto) 0.7 % (0.0-4.3) 05/15/21 12:32 Baso % (Auto) 0.4 % (0.0-1.8) 05/15/21 12:32 Lymph # (Auto) 1.6 K/mm3 (1.2-5.4) 05/15/21 12:32 [place] # (Auto) 0.6 K/mm3 (0.0-0.8) 05/15/21 12:32 Eos # (Auto) 0.0 K/mm3 (0.0-0.4) 05/15/21 12:32 Baso # (Auto) 0.0 K/mm3 (0.0-0.1) 05/15/21 12:32 Seg Neutrophils % 56.7 % (40.0-70.0) 05/15/21 12:32 Seg Neutrophils # 3.0 K/mm3 (1.8-7.7) 05/15/21 12:32 PT 13.9 Sec. (12.2-14.9) 05/15/21 12:32 INR 1.02 (0.87-1.13) 05/15/21 12:32 APTT 25.7 Sec. (24.2-36.6) 05/15/21 12:32 Thrombin Time 17.3 Sec. (15.1-19.6) 05/15/21 12:32 Sodium 143 mmol/L (137-145) 05/15/21 12:32 Potassium 3.2 mmol/L (3.6-5.0) L 05/15/21 12:32 Chloride 109.0 mmol/L (98-107) H 05/15/21 12:32 Carbon Dioxide 24 mmol/L (22-30) 05/15/21 12:32 Anion Gap 13 mmol/L 05/15/21 12:32 BUN 12 mg/dL (9-20) 05/15/21 12:32 Creatinine 1.6 mg/dL (0.8-1.3) H 05/15/21 12:32 Estimated GFR 53 ml/min 05/15/21 12:32 BUN/Creatinine Ratio 8 % 05/15/21 12:32 Glucose 99 mg/dL (75-100) 05/15/21 12:32 Calcium 9.4 mg/dL (8.4-10.2) 05/15/21 12:32 Total Bilirubin 0.50 mg/dL (0.1-1.2) 05/15/21 12:32 AST 16 units/L (5-40) 05/15/21 12:32 ALT 6 units/L (7-56) L 05/15/21 12:32 Alkaline Phosphatase 82 units/L (35-129) 05/15/21 12:32 Total Creatine Kinase 70 units/L (55-170) 05/15/21 12:32 CK-MB (CK-2) < 1.0 ng/mL (0.0-4.0) 05/15/21 12:32 CK-MB (CK-2) Rel Index 1.4 (0-4) 05/15/21 12:32 Troponin T < 0.010 ng/mL (0.00-0.029) 05/15/21 12:32 Total Protein 7.0 g/dL (6.3-8.2) 05/15/21 12:32 Albumin 3.8 g/dL (3.9-5) L 05/15/21 12:32 Albumin/Globulin Ratio 1.2 % 05/15/21 12:32 Triglycerides 65 mg/dL (2-149) 05/16/21 04:13 Cholesterol 113 mg/dL (50-199) 05/16/21 04:13 LDL Cholesterol Direct 75 mg/dL (50-130) 05/16/21 04:13 HDL Cholesterol 30 mg/dL (40-59) L 05/16/21 04:13 Cholesterol/HDL Ratio 3.76 % 05/16/21 04:13 TSH 0.235 mlU/mL (0.270-4.200) L 05/15/21 12:32 Plasma/Serum Alcohol < 0.01 % (0-0.07) 05/15/21 12:32 Drake/IV: Voiding Method Urinal Active Medications - Current Medications Current Medications: Generic Name Dose Route Start Last Admin Trade Name Freq PRN Reason Stop Dose Admin Acetaminophen 650 mg 05/15/21 14:44 05/19/21 12:20 Acetaminophen 325 Mg Tab PO 650 mg Q4H PRN Administration Pain, Mild (1-3) Hydrocodone Bitart/Acetaminophen 1 each 05/15/21 14:46 Hydrocodone/Acetaminophen 5-325 Mg Tab PO Q6HR PRN Pain, Moderate (4-6) Albuterol 2.5 mg 05/15/21 14:44 Albuterol 2.5 Mg/3 Ml Nebu IH Q3HRT PRN Shortness Of Breath Aspirin 325 mg 05/16/21 10:00 05/20/21 12:25 Aspirin 325 Mg Tab PO 325 mg QDAY LILIAN Administration Atorvastatin Calcium 40 mg 05/15/21 22:00 05/20/21 21:42 Atorvastatin 40 Mg Tab PO 40 mg QHS LILIAN Administration Bisacodyl 10 mg 05/15/21 14:44 Bisacodyl 10 Mg Rect Supp NM QDAY PRN Constipation Clopidogrel Bisulfate 75 mg 05/16/21 10:00 05/20/21 12:29 Clopidogrel 75 Mg Tab PO 75 mg QDAY LILIAN Administration Colchicine 0.6 mg 05/16/21 10:00 05/20/21 12:25 Colchicine 0.6 Mg Tab PO 0.6 mg DAILY LILIAN Administration Magnesium Hydroxide 30 ml 05/15/21 14:44 Magnesium Hydroxide (Mom) Oral Liqd Udc PO Q4H PRN Constipation Metoclopramide HCl 10 mg 05/15/21 14:44 Metoclopramide 10 Mg Tab PO Q6H PRN Nausea And Vomiting Ondansetron HCl 4 mg 05/15/21 14:44 Ondansetron 4 Mg/2 Ml Inj IV Q8H PRN Nausea And Vomiting Promethazine HCl 25 mg 05/15/21 14:44 Promethazine 25 Mg Rect Supp NM Q6H PRN Nausea And Vomiting Sodium Chloride 10 ml 05/15/21 14:44 Sodium Chloride 0.9% 10 Ml Flush Syringe IV PRN PRN LINE FLUSH
[2021-05-21] MEDS: ASPIRIN 325 MG TAB PO SCH (09:33)
[2021-05-21] MEDS: COLCHICINE 0.6 MG TAB PO SCH (09:33)
[2021-05-21] MEDS: CLOPIDOGREL 75 MG TAB PO SCH (09:33)
--- NOTE | 2021-05-22 08:33 | Progress Note ---
Assessment and Plan Assessment and plan: Acute CVA Hyperlipidemia Hypertension Coronary artery disease Tobacco abuse. 05/16/2021. Follow-up echocardiogram, carotid Dopplers and MRI brain. PT/OT evaluation. Continue aspirin, Plavix and Lipitor. Await neurology consultation. 05/17/2021. MRI reveals acute right periventricular subcortical infarct. Old left cerebellar infarct. CTA of the head and neck reveals atherosclerotic calcification involving distal internal carotid arteries with mild to moderate segmental narrowing on the right. Echocardiogram reveals left ventricular normal size with systolic function normal as well. Left ventricular ejection fraction is 55 to 60%. Saline bubble contrast IV injection does not demonstrate PFO. Allow for permissive hypertension for the next 24 hours. Physical therapy recommends acute rehab. Speech therapy recommends pured diet with thin liquids. Continue PT/OT/ST. Continue aspirin, Plavix and Lipitor. Patient will be counseled on smoking cessation at discharge. 05/18/2021. Continue PT/OT/ST. Continue aspirin Plavix and Lipitor. Physical therapy recommends acute rehab. Await placement. 05/19/2021. Continue PT/OT/ST. Continue aspirin Plavix and Lipitor. Physical therapy recommends acute rehab. Await placement. 05/20/2021. Will discuss with case management disposition. Physical therapy recommends acute rehab. Awaiting placement. Continue PT/OT/ST. Continue aspirin, Plavix and Lipitor 05/21/2021; pending acute rehab placement. Patient had peripheral arterial disease and had stenting of the right and left common iliac and anterior iliac arteries. Continue with aspirin Plavix and statin. 05/22/2021; discussed with Janny/Marla they declined acute rehab and recommend subacute rehab. Will follow with case management. History Interval history: Patient was seen and evaluated this morning Patient has slurred speech with left lower extremity weakness Abnormal speech Hospitalist Physical - Physical exam Narrative exam: Not in cardiopulmonary distress. The patient appeared well nourished and normally developed. Vital signs as documented. Head exam is unremarkable. No scleral icterus . Neck is without jugular venous distension, thyromegaly, or carotid bruits. Lungs are clear to auscultation. Cardiac exam reveals regular rate and Rhythm. Abdominal exam reveals normal bowel sounds, nontender, no organomegaly. Extremities are nonedematous and both femoral and pedal pulses are normal. 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 Slurred speech, left leg weakness. Left facial droop. - Constitutional Vitals: Temp Pulse Resp BP Pulse Ox 98.2 F 65 17 142/69 99 05/22/21 05:03 05/22/21 07:39 05/22/21 07:39 05/22/21 05:03 05/22/21 07:39 General appearance: Present: no acute distress HEART Score - HEART Score Troponin: Troponin T < 0.010 ng/mL (0.00-0.029) 05/15/21 12:32 Results - Labs CBC & Chem 7: 05/15/21 12:32 05/15/21 12:32 Labs: Laboratory Last Values WBC 5.3 K/mm3 (4.5-11.0) 05/15/21 12:32 RBC 4.43 M/mm3 (3.65-5.03) 05/15/21 12:32 Hgb 11.7 gm/dl (11.8-15.2) L 05/15/21 12:32 Hct 37.2 % (35.5-45.6) 05/15/21 12:32 MCV 84 fl (84-94) 05/15/21 12:32 MCH 27 pg (28-32) L 05/15/21 12:32 MCHC 32 % (32-34) 05/15/21 12:32 RDW 17.7 % (13.2-15.2) H 05/15/21 12:32 Plt Count 193 K/mm3 (140-440) 05/15/21 12:32 Lymph % (Auto) 30.5 % (13.4-35.0) 05/15/21 12:32 [place] % (Auto) 11.7 % (0.0-7.3) H 05/15/21 12:32 Eos % (Auto) 0.7 % (0.0-4.3) 05/15/21 12:32 Baso % (Auto) 0.4 % (0.0-1.8) 05/15/21 12:32 Lymph # (Auto) 1.6 K/mm3 (1.2-5.4) 05/15/21 12:32 [place] # (Auto) 0.6 K/mm3 (0.0-0.8) 05/15/21 12:32 Eos # (Auto) 0.0 K/mm3 (0.0-0.4) 05/15/21 12:32 Baso # (Auto) 0.0 K/mm3 (0.0-0.1) 05/15/21 12:32 Seg Neutrophils % 56.7 % (40.0-70.0) 05/15/21 12:32 Seg Neutrophils # 3.0 K/mm3 (1.8-7.7) 05/15/21 12:32 PT 13.9 Sec. (12.2-14.9) 05/15/21 12:32 INR 1.02 (0.87-1.13) 05/15/21 12:32 APTT 25.7 Sec. (24.2-36.6) 05/15/21 12:32 Thrombin Time 17.3 Sec. (15.1-19.6) 05/15/21 12:32 Sodium 143 mmol/L (137-145) 05/15/21 12:32 Potassium 3.2 mmol/L (3.6-5.0) L 05/15/21 12:32 Chloride 109.0 mmol/L (98-107) H 05/15/21 12:32 Carbon Dioxide 24 mmol/L (22-30) 05/15/21 12:32 Anion Gap 13 mmol/L 05/15/21 12:32 BUN 12 mg/dL (9-20) 05/15/21 12:32 Creatinine 1.6 mg/dL (0.8-1.3) H 05/15/21 12:32 Estimated GFR 53 ml/min 05/15/21 12:32 BUN/Creatinine Ratio 8 % 05/15/21 12:32 Glucose 99 mg/dL (75-100) 05/15/21 12:32 Calcium 9.4 mg/dL (8.4-10.2) 05/15/21 12:32 Total Bilirubin 0.50 mg/dL (0.1-1.2) 05/15/21 12:32 AST 16 units/L (5-40) 05/15/21 12:32 ALT 6 units/L (7-56) L 05/15/21 12:32 Alkaline Phosphatase 82 units/L (35-129) 05/15/21 12:32 Total Creatine Kinase 70 units/L (55-170) 05/15/21 12:32 CK-MB (CK-2) < 1.0 ng/mL (0.0-4.0) 05/15/21 12:32 CK-MB (CK-2) Rel Index 1.4 (0-4) 05/15/21 12:32 Troponin T < 0.010 ng/mL (0.00-0.029) 05/15/21 12:32 Total Protein 7.0 g/dL (6.3-8.2) 05/15/21 12:32 Albumin 3.8 g/dL (3.9-5) L 05/15/21 12:32 Albumin/Globulin Ratio 1.2 % 05/15/21 12:32 Triglycerides 65 mg/dL (2-149) 05/16/21 04:13 Cholesterol 113 mg/dL (50-199) 05/16/21 04:13 LDL Cholesterol Direct 75 mg/dL (50-130) 05/16/21 04:13 HDL Cholesterol 30 mg/dL (40-59) L 05/16/21 04:13 Cholesterol/HDL Ratio 3.76 % 05/16/21 04:13 TSH 0.235 mlU/mL (0.270-4.200) L 05/15/21 12:32 Plasma/Serum Alcohol < 0.01 % (0-0.07) 05/15/21 12:32 Drake/IV: Voiding Method Urinal Active Medications - Current Medications Current Medications: Generic Name Dose Route Start Last Admin Trade Name Freq PRN Reason Stop Dose Admin Acetaminophen 650 mg 05/15/21 14:44 05/19/21 12:20 Acetaminophen 325 Mg Tab PO 650 mg Q4H PRN Administration Pain, Mild (1-3) Hydrocodone Bitart/Acetaminophen 1 each 05/15/21 14:46 Hydrocodone/Acetaminophen 5-325 Mg Tab PO Q6HR PRN Pain, Moderate (4-6) Albuterol 2.5 mg 05/15/21 14:44 Albuterol 2.5 Mg/3 Ml Nebu IH Q3HRT PRN Shortness Of Breath Aspirin 325 mg 05/16/21 10:00 05/21/21 09:33 Aspirin 325 Mg Tab PO 325 mg QDAY LILIAN Administration Atorvastatin Calcium 40 mg 05/15/21 22:00 05/21/21 23:09 Atorvastatin 40 Mg Tab PO 40 mg QHS LILIAN Administration Bisacodyl 10 mg 05/15/21 14:44 Bisacodyl 10 Mg Rect Supp [place] QDAY PRN Constipation Clopidogrel Bisulfate 75 mg 05/16/21 10:00 05/21/21 09:33 Clopidogrel 75 Mg Tab PO 75 mg QDAY LILIAN Administration Colchicine 0.6 mg 05/16/21 10:00 05/21/21 09:33 Colchicine 0.6 Mg Tab PO 0.6 mg DAILY LILIAN Administration Magnesium Hydroxide 30 ml 05/15/21 14:44 Magnesium Hydroxide (Mom) Oral Liqd Udc PO Q4H PRN Constipation Metoclopramide HCl 10 mg 05/15/21 14:44 Metoclopramide 10 Mg Tab PO Q6H PRN Nausea And Vomiting Ondansetron HCl 4 mg 05/15/21 14:44 Ondansetron 4 Mg/2 Ml Inj IV Q8H PRN Nausea And Vomiting Promethazine HCl 25 mg 05/15/21 14:44 Promethazine 25 Mg Rect Supp [place] Q6H PRN Nausea And Vomiting Sodium Chloride 10 ml 05/15/21 14:44 Sodium Chloride 0.9% 10 Ml Flush Syringe IV PRN PRN LINE FLUSH
[2021-05-22] MEDS: COLCHICINE 0.6 MG TAB PO SCH (09:36)
[2021-05-22] MEDS: ASPIRIN 325 MG TAB PO SCH (09:36)
[2021-05-22] MEDS: CLOPIDOGREL 75 MG TAB PO SCH (09:36)
[2021-05-23 09:06] VITALS: BP 170/90
[2021-05-23] MEDS: CLOPIDOGREL 75 MG TAB PO SCH (10:10)
[2021-05-23] MEDS: ASPIRIN 325 MG TAB PO SCH (10:10)
--- NOTE | 2021-05-23 11:35 | Discharge Summary ---
Providers - Providers Date of Admission: 05/16/21 14:51 Date of discharge: 05/23/21 Attending physician: VIV KRISHNA 05/15/21 14:44 Occupational Therapy Evaluate and Treat [CONS] Routine Comment: Reason For Exam: Neuro deficits Physical Therapy Evaluation and Treat [CONS] Routine Comment: Reason For Exam: Neuro deficits 05/15/21 14:45 Speech Therapy Evaluation and Treat [CONS] Routine Reason For Exam: swallow eval 05/16/21 08:13 Consult to Physician [CONS] Routine Comment: Consulting Provider: KATHY KUMARI Physician Instructions: Reason For Exam: cva Primary care physician: REAMING MACHINE TENDER Hospitalization Condition: Fair Pertinent studies: Head CT which showed calcifications of internal carotid artery Carotid Doppler which shows bilateral stenosis less than 50%. Chest x-ray unremarkable. MRI acute right periventricular subcortical infarct significant cerebral atrophy Hospital course: 65-year-old male with a history of hypertension hyperlipidemia coronary artery disease status post stenting previous CVA and tobacco abuse presented with decreased cognition vertigo and slurred speech. Patient presented and treated for stroke work-up. Found to have acute CVA from acute ischemic stroke. Patient improved throughout hospital stay. Blood pressure was controlled started on statin and aspirin. Patient continued on Plavix because has had previous stenting. From peripheral vascular disease. Patient was evaluated for acute rehab which was suggested however insurance determined patient was not a candidate for acute rehab. Patient therefore was transferred home with outpatient set up for physical therapy. Patient was improving able to do sit ups at the side of bed walk around without any distress without any vertigo and strength had significantly improved. 05/16/2021. Follow-up echocardiogram, carotid Dopplers and MRI brain. PT/OT evaluation. Continue aspirin, Plavix and Lipitor. Await neurology consultation. 05/17/2021. MRI reveals acute right periventricular subcortical infarct. Old left cerebellar infarct. CTA of the head and neck reveals atherosclerotic calcification involving distal internal carotid arteries with mild to moderate segmental narrowing on the right. Echocardiogram reveals left ventricular normal size with systolic function normal as well. Left ventricular ejection fraction is 55 to 60%. Saline bubble contrast IV injection does not demonstrate PFO. Allow for permissive hypertension for the next 24 hours. Physical therapy recommends acute rehab. Speech therapy recommends pured diet with thin liquids. Continue PT/OT/ST. Continue aspirin, Plavix and Lipitor. Patient will be counseled on smoking cessation at discharge. 05/18/2021. Continue PT/OT/ST. Continue aspirin Plavix and Lipitor. Physical therapy recommends acute rehab. Await placement. 05/19/2021. Continue PT/OT/ST. Continue aspirin Plavix and Lipitor. Physical therapy recommends acute rehab. Await placement. 05/20/2021. Will discuss with case management disposition. Physical therapy recommends acute rehab. Awaiting placement. Continue PT/OT/ST. Continue aspirin, Plavix and Lipitor 05/21/2021; pending acute rehab placement. Patient had peripheral arterial disease and had stenting of the right and left common iliac and anterior iliac arteries. Continue with aspirin Plavix and statin. 05/22/2021; discussed with Janny/Marla they declined acute rehab and recommend subacute rehab. Will follow with case management. Disposition: - TO HOME OR SELFCARE Final Discharge Diagnosis (Prints w/discharge instructions): Acute ischemic CVA - Discharge Diagnoses (1) CVA (cerebral vascular accident) Status: Acute Qualifiers: CVA mechanism: unspecified Qualified Code(s): I63.9 - Cerebral infarction, unspecified Comment: Patient acute CVA ischemic stroke to be placed on aspirin Plavix also antiplatelet therapy and antilipid therapy Lipitor. Goal was to keep LDL less than 70. Patient to follow-up with neurologist in 4 to 6 weeks. Has physical therapy set up at home. Patient was considered not a candidate for acute rehab. Clinically patient up walking around doing sit ups. Definitely not candidate for subacute rehab. Home therapy will benefit patient anyway. (2) DVT prophylaxis Status: Acute (3) Hyperlipidemia Status: Acute Qualifiers: Hyperlipidemia type: mixed hyperlipidemia Qualified Code(s): E78.2 - Mixed hyperlipidemia Comment: Simvastatin. LDL goal less than 70. (4) Hypertension Status: Acute Qualifiers: Hypertension type: essential hypertension Qualified Code(s): I10 - Essential (primary) hypertension Comment: Patient has optimal control blood pressure 122/75. Continue beta- dariel (5) CKD (chronic kidney disease) stage 3, GFR 30-59 ml/min Status: Acute (6) Intermittent claudication of both lower extremities due to atherosclerosis Status: Acute Comment: Patient says stent placement will continue Plavix. (7) Tobacco abuse Status: Acute (8) Tobacco abuse counseling Status: Acute Comment: Nicotine patch. Patient was educated about the high risk of recurrent CVA with continued tobacco abuse. Core Measure Documentation - Palliative Care Palliative Care/ Comfort Measures: Not Applicable - Core Measures Any of the following diagnoses?: stroke - Stroke Discharge Requirements Statin for LDL = or >70 mg/dl on DC: Yes Anticoag for atrial fib/atrial flutter: Yes Antithrombotic for ischemic stroke: Yes Exam - Constitutional Vitals: Temp Pulse Resp BP Pulse Ox 98.3 F 92 H 18 170/90 95 05/23/21 08:06 05/23/21 08:06 05/23/21 08:06 05/23/21 08:06 05/23/21 08:06 General appearance: Present: no acute distress, well-nourished - EENT Eyes: Present: PERRL ENT: hearing intact, clear oral mucosa - Neck Neck: Present: supple, normal ROM - Respiratory Respiratory effort: normal Respiratory: bilateral: CTA - Cardiovascular Heart Sounds: Present: S1 & S2. Absent: rub, click - Extremities Extremities: pulses symmetrical, No edema Peripheral Pulses: within normal limits - Abdominal General gastrointestinal: Present: soft, non-tender, non-distended, normal bowel sounds Male genitourinary: Present: normal - Integumentary Integumentary: Present: clear, warm, dry - Musculoskeletal Musculoskeletal: gait normal, strength equal bilaterally - Psychiatric Psychiatric: appropriate mood/affect, intact judgment & insight - Neurologic Neurologic: CNII-XII intact, moves all extremities Plan Activity: up only with assistance Weight Bearing Status: Full Weight Bearing Diet: low cholesterol Special Instructions: smoking cessation, physical therapy Follow up with: PRIMARY MD BECCA [Primary Care Provider] - 3-5 Days GRETCHEN HARRELL MD [Staff Physician] - 7 Days Prescriptions: Aspirin 325 mg PO QDAY #30 tablet Colchicine [Colcrys] 0.6 mg PO DAILY 5 Days #5 tablet AtorvaSTATin [Lipitor] 40 mg PO QHS #30 tablet lisinopriL [Lisinopril] 10 mg PO DAILY #30 HYDROcodone/APAP 5-325 [[place] 5-325 mg TAB] 1 each PO Q6HR PRN #25 tablet PRN Reason: Pain Clopidogrel [Plavix] 75 mg PO QDAY #30 tablet
== END 2021-05-23 12:30 | disposition home health service (06) | DRG 66 ==
LOC: ED 11:38 → 4A 14:44 → OBSVTOIN 05-16 14:51
PROVIDERS: ADMIT Internal Medicine; ATTEND Internal Medicine
DX: I63.9 Cerebral infarction, unspecified (principal); E78.2 Mixed hyperlipidemia; I25.10 Atherosclerotic heart disease of native coronary artery without angina pectoris; M10.9 Gout, unspecified; F17.200 Nicotine dependence, unspecified, uncomplicated; R29.703 NIHSS score 3; R47.1 Dysarthria and anarthria; R13.10 Dysphagia, unspecified; N18.30 Chronic kidney disease, stage 3 unspecified; I12.9 Hypertensive chronic kidney disease with stage 1 through stage 4 chronic kidney disease, or unspecified chronic kidney disease; I70.213 Atherosclerosis of native arteries of extremities with intermittent claudication, bilateral legs; Z95.5 Presence of coronary angioplasty implant and graft; Z82.49 Family history of ischemic heart disease and other diseases of the circulatory system; Z83.3 Family history of diabetes mellitus; Z79.899 Other long term (current) drug therapy; Z79.82 Long term (current) use of aspirin
CPT/HCPCS: 36415; 70450; 70496; 70498; 70551; 80053; 80061; 80320; 82550; 82553; 84443; 84484; 85025; 85610; 85670; 85730; 93005; 93306; 93880; 99406; G0378; A9270-GY; G0480; Q9967

== ENCOUNTER 2022-04-30 12:05 | Emergency (ER) | payer MEDICARE, OTHER ==
[2022-04-30] MEDS ORDERED: SODIUM CHLORIDE 0.9% 500 ML 500 ML IV ONE (12:51)
[2022-04-30] MEDS ORDERED: ONDANSETRON 4 MG/2 ML INJ IV ONE (12:51)
--- NOTE | 2022-04-30 13:01 | Emergency Department Report ---
- General Chief complaint: Weakness Stated complaint: NAUSEA/VOMITING/WEAKNESS Time Seen by Provider: 04/30/22 12:40 Source: EMS Mode of arrival: Stretcher Limitations: Physical Limitation - History of Present Illness Initial comments: Patient is a 66-year-old male with history of 2 previous strokes which have resulted and left-sided residual weakness. Patient presents to the emergency department with complaints of weakness that started this morning. Patient notes that when he had his morning coffee he immediately threw up. He noted he had diffuse abdominal pain but states he is currently pain-free. Patient also notes that he felt dizzy although he no longer feels dizzy. 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 Not that. Patient has recently seen a GI doctor has had blood in stools previously. They state that he had a CT scan done a few weeks ago but they are unsure of the results. -: This morning Location: generalized Severity: moderate Severity scale (0 -10): 0 Improves with: none - Related Data Home Medications Medication Instructions Recorded Confirmed Last Taken Aspirin 325 mg PO QDAY 04/16/21 05/20/21 04/30/22 07:00 lisinopriL [Lisinopril] 20 mg PO DAILY 04/30/22 04/30/22 04/30/22 07:00 Previous Rx's Medication Instructions Recorded Last Taken Type Aspirin 325 mg PO QDAY #30 tablet 05/23/21 04/30/22 07:00 Rx Clopidogrel [Plavix] 75 mg PO QDAY #30 tablet 05/23/21 04/30/22 07:00 Rx HYDROcodone/APAP 5-325 [[place] 1 each PO Q6HR PRN #25 tablet 05/23/21 04/30/22 07:00 Rx 5-325 mg TAB] Allergies Allergy/AdvReac Type Severity Reaction Status Date / Time No Known Allergies Allergy Unverified 02/24/21 14:39 ED Review of Systems ROS: Stated complaint: NAUSEA/VOMITING/WEAKNESS Other details as noted in HPI Constitutional: denies: chills, fever Eyes: denies: eye pain, eye discharge, vision change ENT: denies: ear pain, throat pain Respiratory: denies: cough, shortness of breath, wheezing Cardiovascular: denies: chest pain, palpitations Endocrine: no symptoms reported Gastrointestinal: abdominal pain, nausea, vomiting. denies: diarrhea Genitourinary: denies: urgency, dysuria Musculoskeletal: denies: back pain, joint swelling, arthralgia Skin: denies: rash, lesions Neurological: weakness. denies: headache, paresthesias Psychiatric: denies: anxiety, depression Hematological/Lymphatic: denies: easy bleeding, easy bruising ED Past Medical Hx - Past Medical History Previous Medical History?: Yes Hx Hypertension: Yes Hx CVA: Yes Hx Congestive Heart Failure: No Hx Diabetes: No Hx Asthma: No Hx COPD: No - Surgical History Past Surgical History?: Yes Additional Surgical History: Stent - Social History Smoking Status: Current Every Day Smoker - Medications Home Medications: Home Medications Medication Instructions Recorded Confirmed Last Taken Type Aspirin 325 mg PO QDAY 04/16/21 05/20/21 04/30/22 07:00 History Aspirin 325 mg PO QDAY #30 tablet 05/23/21 04/30/22 04/30/22 07:00 Rx Clopidogrel [Plavix] 75 mg PO QDAY #30 tablet 05/23/21 04/30/22 04/30/22 07:00 Rx HYDROcodone/APAP 5-325 [[place] 1 each PO Q6HR PRN #25 tablet 05/23/21 04/30/22 04/30/22 07:00 Rx 5-325 mg TAB] lisinopriL [Lisinopril] 20 mg PO DAILY 04/30/22 04/30/22 04/30/22 07:00 History ED Physical Exam - General Limitations: Physical Limitation General appearance: alert, in no apparent distress - Head Head exam: Present: atraumatic, normocephalic - Eye Eye exam: Present: normal appearance - ENT ENT exam: Present: mucous membranes moist - Neck Neck exam: Present: normal inspection - Respiratory Respiratory exam: Present: normal lung sounds bilaterally. Absent: respiratory distress - Cardiovascular Cardiovascular Exam: Present: regular rate, normal rhythm. Absent: systolic murmur, diastolic murmur, rubs, gallop - GI/Abdominal GI/Abdominal exam: Present: soft. Absent: distended, tenderness - Rectal Rectal exam: Present: deferred - Extremities Exam Extremities exam: Present: normal inspection - Back Exam Back exam: Present: normal inspection - Neurological Exam Neurological exam: Present: alert, oriented X3, motor sensory deficit (L sided facial droop and weakness; chronic) - Psychiatric Psychiatric exam: Present: normal affect, normal mood - Skin Skin exam: Present: warm, dry, intact, normal color. Absent: rash ED Course Vital Signs 04/30/22 04/30/22 04/30/22 12:17 12:34 13:05 Temperature 98.2 F Pulse Rate 107 H 101 H 100 H Respiratory 17 20 17 Rate Blood Pressure 134/65 Blood Pressure 126/69 135/70 [Left] O2 Sat by Pulse 96 95 97 Oximetry - Reevaluation(s) Reevaluation #1: 04/30/22 17:29 Patient unable to ambulate. ED Medical Decision Making - Lab Data Result diagrams: 04/30/22 13:16 04/30/22 13:16 - EKG Data -: EKG Interpreted by Me EKG shows normal: sinus rhythm Rate: normal - EKG Data Interpretation: normal EKG - Radiology Data Radiology results: report reviewed, image reviewed - Medical Decision Making Patient is a 66-year-old male who presents to the emergency department with complaints of generalized weakness, dizziness, abdominal pain, vomiting. Differential includes CVA, intracranial bleed, intra-abdominal pathology, urinary tract infection, dehydration, electrolyte abnormality. Plan to obtain basic labs, give fluids and Zofran, obtain CT head and CT abdomen pelvis as well as x-ray of the chest. Pending work-up patient will be reassessed to see if he is at his baseline. Patient is unable to ambulate patient may require admission for further management. Critical care attestation.: If time is entered above; I have spent that time in minutes in the direct care of this critically ill patient, excluding procedure time. 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
--- NOTE | 2022-04-30 13:29 | XRay Report ---
CHEST 1 VIEW INDICATION / CLINICAL INFORMATION: weakness. COMPARISON: None available. FINDINGS: SUPPORT DEVICES: None. HEART / MEDIASTINUM: No significant abnormality. LUNGS / PLEURA: No significant pulmonary or pleural abnormality. No pneumothorax. ADDITIONAL FINDINGS: No significant additional findings. IMPRESSION: 1. No acute findings. Signer Name: Fausto Simpson MD Signed: 04/30/2022 1:24 PM Workstation Name: [email or web address]
[2022-04-30 13:45] LABS: Basophils % (Auto) 0.3 % (0.0-1.8); Eosinophils % (Auto) 0.1 % (0.0-4.3); Hematocrit 38.2 % (35.5-45.6); Hemoglobin 12.1 gm/dl (11.8-15.2); Lymphocytes # (Auto) 0.5 K/mm3 (1.2-5.4); Lymphocytes % (Auto) 4.9 % (13.4-35.0); Mean Corpuscular HGB Conc 32 % (32-34); Mean Corpuscular Volume 83 fl (84-94); Monocytes # (Auto) 0.8 K/mm3 (0.0-0.8); Monocytes % (Auto) 7.1 % (0.0-7.3); Platelet Count 175 K/mm3 (140-440); Red Cell Distribution Width 16.8 % (13.2-15.2)
[2022-04-30 13:54] LABS: INR 0.92 (0.87-1.13)
[2022-04-30 14:12] LABS: Alanine Aminotransferase 7 units/L (7-56); Albumin 3.9 g/dL (3.9-5); BUN/Creatinine Ratio 9; Blood Urea Nitrogen 17 mg/dL (9-20); Calcium 9.2 mg/dL (8.4-10.2); Hemolysis Index 14
--- NOTE | 2022-04-30 15:09 | Cat Scan Report ---
CT ABDOMEN AND PELVIS WITHOUT CONTRAST INDICATION / CLINICAL INFORMATION: abdominal pain diffuse nausea/vomiting. TECHNIQUE: Axial CT images were obtained through the abdomen and pelvis without IV contrast. Sagittal and stratton l reformatted images. All CT scans at this location are performed using CT dose reduction for ALARA b y means of automated exposure control. COMPARISON: None available. FINDINGS: LOWER CHEST: No significant abnormality. LIVER: No significant abnormality. GALLBLADDER: No significant abnormality. BILE DUCTS: No significant abnormality. PANCREAS: No significant abnormality. SPLEEN: No significant abnormality. ADRENALS: No significant abnormality. RIGHT KIDNEY and URETER: No significant abnormality. LEFT KIDNEY and URETER: No significant abnormality. STOMACH and SMALL BOWEL: No significant abnormality. Small hiatal hernia is noted. COLON: No significant abnormality. APPENDIX: No significant abnormality. PERITONEUM: No free fluid. No free air. No fluid collection. LYMPH NODES: No significant adenopathy. AORTA and ARTERIES: Moderate atherosclerotic calcification without acute abnormality. Bilateral commo n iliac stents right external iliac stents are noted. IVC and VEINS: No significant abnormality. URINARY BLADDER: No significant abnormality. REPRODUCTIVE ORGANS: No significant abnormality. ADDITIONAL FINDINGS: None. SKELETAL SYSTEM: Mild thoracolumbar spondylosis. IMPRESSION: No significant abnormality is identified. Signer Name: Jim Bazzi Jr, MD Signed: 04/30/2022 3:04 PM Workstation Name: [id number]
--- NOTE | 2022-04-30 15:10 | Cat Scan Report ---
CT HEAD WITHOUT CONTRAST INDICATION / CLINICAL INFORMATION: weakness; hx of stroke; dizzy, unable to ambulate. TECHNIQUE: All CT scans at this location are performed using CT dose reduction for ALARA by means of automated e xposure control. COMPARISON: Head CT 05/15/2021 and MRI brain 05/16/2021 FINDINGS: HEMORRHAGE: No evidence of intracranial hemorrhage or extra-axial fluid collection. EXTRA-AXIAL SPACES: Cortical sulci and sylvian fissures are within normal limits for the patient's ag e of 66 years. Basilar cisterns have an unremarkable appearance. VENTRICULAR SYSTEM: The third and lateral ventricles are mildly enlarged reflecting presence of paren chymal volume loss. CEREBRAL PARENCHYMA: Periventricular and deep white matter lucency is observed. This is probably seco ndary to microvascular ischemic change. There is no indication of recent infarction. No remote cortic al infarctions are demonstrated in the lateral aspect left temporal lobe. Remote small deep infarctio n is present in the right gangliocapsular region. Small deep infarctions are present in the left. The se findings are stable. MIDLINE SHIFT OR HERNIATION: There is no mass effect. CEREBELLUM / BRAINSTEM: Brainstem has an unremarkable appearance. There is evidence of remote left ce rebellar infarction in the anterior inferior cerebellar artery territory. MIDLINE STRUCTURES:Pituitary gland has an unremarkable appearance. No abnormalities are seen in the p ineal region. INTRACRANIAL VESSELS:Calcified atherosclerotic plaque is present along the course of the cavernous se gments of both internal carotid arteries. Similar findings are seen at the distal vertebral arteries. CRANIOCERVICAL JUNCTION:No significant abnormality. ORBITS: visualized portions of the orbits have an unremarkable appearance. SOFT TISSUES of HEAD: No significant abnormality. CALVARIUM: Evaluation of bone windows reveals no abnormalities. PARANASAL SINUSES / MASTOID AIR CELLS: Several millimeters of mucosal thickening is present at the ba se of the right maxillary sinus. Paranasal sinuses otherwise appear clear. There is no indication of inflammatory change in the mastoid air cells. ADDITIONAL FINDINGS: None. IMPRESSION: 1. Multiple remote small deep infarctions in both cerebral hemispheres. 2. Remote left temporal lobe infarction. 3. Remote left cerebellar infarction. 4. No acute intracranial abnormalities are identified. Similar findings were present on previous stud ies. Signer Name: Farhat Keene MD Signed: 04/30/2022 3:05 PM Workstation Name: [id number]
[2022-04-30 16:45] LABS: Mucus,Urine FEW /HPF
[2022-04-30 16:54] LABS: Bilirubin,Urine 1+ (Negative); Color,Urine Yellow (Yellow)
[2022-04-30 16:55] LABS: Blood,Urine Large (Negative); Ictotest,Urine Negative (Negative)
--- NOTE | 2022-04-30 17:25 | History and Physical Report ---
History of Present Illness Chief complaint: He is getting weaker and is more confused History of present illness: 66 YO Male with HTN, CVA, Vascular Dementia, Cerebral Atherosclerosis, HLD, CAD S/P Stent placement, PVD S/P Stent Placement, Nicotine Dependence presents to ED for evaluation. Patient has diminished cognition at the time my evaluation is unable to provide detailed history. Patient history provided by his sister/caregiver who is at bedside during exam and interview. Patient sister reports" he can do anything for himself anymore". Patient daughter states that over the past month the patient has experienced progressive weakness, diminished oral intake, confusion. Patient is currently bedbound and nonambulatory, and requires 5/6 assistance with activities of daily living. Patient has a palliat mita performance score of 30%. Patient was found to have increased confusion and weakness today. EMS was notified and upon arrival the patient was found to be in distress and subsequent transported to [facility] for further care and evaluation of the aforementioned symptoms. The patient was seen and evaluated in the emergency department. All lab and imaging studies reviewed. Patient found to have volume depletion, acute kidney injury, metabolic encephalopathy, debility as well as diminished oral intake. Patient treated with IV fluid resuscitation therapy. No reports of fever, chills, chest pain, palpitations, productive cough, skin rash, recent ill contacts, or known exposure to COVID-19. Prior admission on 04/26/2021 reviewed. All medication listed at time of admission has been reconciled. Advanced care planning conducted in ED. patient found to have poor prognosis with current condition and current state of decline patient has a life expectancy of 6 months or less if the illness runs its expected course. Past History Past Medical History: CAD, hypertension, hyperlipidemia, PVD, other (See HPI) Past Surgical History: Other (Cardiac stent placement, vascular stent placement) Social history: single, lives with family, smoking Family history: diabetes, hypertension Medications and Allergies Allergies Allergy/AdvReac Type Severity Reaction Status Date / Time No Known Allergies Allergy Unverified 02/24/21 14:39 Home Medications Medication Instructions Recorded Confirmed Last Taken Type Aspirin 325 mg PO QDAY 04/16/21 05/20/21 04/30/22 07:00 History Aspirin 325 mg PO QDAY #30 tablet 05/23/21 04/30/22 04/30/22 07:00 Rx Clopidogrel [Plavix] 75 mg PO QDAY #30 tablet 05/23/21 04/30/22 04/30/22 07:00 Rx HYDROcodone/APAP 5-325 [[place] 1 each PO Q6HR PRN #25 tablet 05/23/21 04/30/22 04/30/22 07:00 Rx 5-325 mg TAB] lisinopriL [Lisinopril] 20 mg PO DAILY 04/30/22 04/30/22 04/30/22 07:00 History Review of Systems ROS unobtainable: due to mental status Exam - Constitutional Vitals: Temp Pulse Resp BP Pulse Ox 98.2 F 100 H 17 134/65 97 04/30/22 12:17 04/30/22 13:05 04/30/22 13:05 04/30/22 13:05 04/30/22 13:05 General appearance: Present: mild distress, cachectic - EENT Eyes: Present: PERRL ENT: clear oral mucosa, hearing decreased - Neck Neck: Present: supple, normal ROM - Respiratory Respiratory effort: normal Respiratory: bilateral: diminished - Cardiovascular Rhythm: regular Heart Sounds: Present: S1 & S2 - Extremities Extremities: pulses symmetrical, No edema Peripheral Pulses: within normal limits - Abdominal General gastrointestinal: Present: soft, non-tender, non-distended Male genitourinary: Present: normal - Integumentary Integumentary: Present: dry, clammy, decreased turgor - Musculoskeletal Musculoskeletal: generalized weakness - Psychiatric Psychiatric: no appropriate mood/affect, no intact judgment & insight, no memory intact - Neurologic Neurologic: CNII-XII intact, no focal deficits, moves all extremities, no gait normal HEART Score - HEART Score Troponin: Troponin T < 0.010 ng/mL (0.00-0.029) 04/30/22 13:16 Results - Labs CBC & Chem 7: 04/30/22 13:16 04/30/22 13:16 Labs: Abnormal lab results 04/30/22 04/30/22 04/30/22 Range/Units 13:16 13:16 14:48 MCV 83 L (84-94) fl MCH 26 L (28-32) pg RDW 16.8 H (13.2-15.2) % Lymph % (Auto) 4.9 L (13.4-35.0) % Lymph # (Auto) 0.5 L (1.2-5.4) K/mm3 Seg Neutrophils % 87.6 H (40.0-70.0) % Seg Neutrophils # 9.5 H (1.8-7.7) K/mm3 Creatinine 2.0 H (0.8-1.3) mg/dL Total Creatine Kinase 355 H (55-170) units/L Total Protein 8.3 H (6.3-8.2) g/dL Urine Blood Large A (Negative) Assessment and Plan - Patient Problems (1) Vascular dementia Current Visit: Yes Status: Acute Qualifiers: Dementia behavioral disturbance: without behavioral disturbance Qualified Code(s): F01.50 - Vascular dementia without behavioral disturbance Plan to address problem: Verbal prompting, verbal redirection, benzodiazepine therapy as clinically indicated, supportive care. (2) Cerebral atherosclerosis Current Visit: Yes Status: Acute Plan to address problem: Risk factor reduction, antiplatelet therapy, supportive care. (3) Peripheral vascular disease Current Visit: Yes Status: Acute Plan to address problem: Supportive care, pain control, continue medical management. (4) Nicotine dependence Current Visit: Yes Status: Acute Qualifiers: Nicotine product type: cigarettes Substance use status: in withdrawal Qualified Code(s): F17.213 - Nicotine dependence, cigarettes, with withdrawal Plan to address problem: Smoke cessation counseling, supportive care. Patient counseled regarding risk and benefits of continued nicotine use. (5) Debility Current Visit: Yes Status: Acute Plan to address problem: Bed alarm, fall precautions, home safety instructions provided. (6) Volume depletion Current Visit: Yes Status: Acute Plan to address problem: IV fluid resuscitation therapy. (7) Hyperlipidemia Current Visit: No Status: Acute Qualifiers: Hyperlipidemia type: mixed hyperlipidemia Qualified Code(s): E78.2 - Mixed hyperlipidemia Plan to address problem: Low-cholesterol diet, statin therapy as clinically indicated. (8) Hypertension Current Visit: No Status: Acute Qualifiers: Hypertension type: primary hypertension Qualified Code(s): I10 - Essential (primary) hypertension Plan to address problem: Monitor blood pressure every shift. (9) Advance care planning Current Visit: Yes Status: Acute Plan to address problem: Disease education data, care plan discussed, diagnoses discussed, prognosis d iscussed, patient remains full code at this time. Patient and family counseled regarding vascular dementia progression. Patient and family knowledges understanding instructions as well as understanding and agreed with care plan. Patient family request home hospice care. Home hospice care team notified. +30 minutes. (10) Preventative health care Current Visit: Yes Status: Acute Plan to address problem: Patient family counseled regarding home safety measures, fall precautions, +30 minutes.
[2022-04-30 20:42] VITALS: BP 155/64
--- NOTE | 2022-05-01 12:10 | Electrocardiograph Report ---
[facility] Test Date: 2022-04-30 Test Time: 12:52:45 Pat Name: EDILIA OMHAN Department: Room: Gender: M Color Mixer: JOSEY : [id number] Requested By: SARAH CHANDRA Order Number: [id number] Reading MD: Ger Mckinnon Measurements Intervals [place] Rate: 96 P: 77 [place]: 159 QRS: 67 QRSD: 79 T: 69 QT: 331 QTc: 418 Interpretive Statements Sinus rhythm Probable left atrial enlargement Compared to ECG 05/16/2021 07:36:59 No significant changes Electronically Signed On 05-01-2022 12:10:36 EDT by Ger Mckinnon
== END 2022-04-30 20:41 | disposition admitted as inpatient to this hospital (09) ==
LOC: ED 12:05
DX: I12.9 Hypertensive chronic kidney disease with stage 1 through stage 4 chronic kidney disease, or unspecified chronic kidney disease (principal); N18.30 Chronic kidney disease, stage 3 unspecified; I63.9 Cerebral infarction, unspecified; F17.200 Nicotine dependence, unspecified, uncomplicated
CPT/HCPCS: 36415; 70450; 71045; 74176; 80053; 81001; 82550; 83690; 83735; 84443; 84484; 85025; 85610; 93005; 96374; 99285; J2405; J7040

== ENCOUNTER 2022-07-05 14:28 | Emergency (ER) | payer MEDICARE ==
[2022-07-05 15:17] VITALS: BP 147/68
[2022-07-05 16:41] LABS: Basophils # (Auto) 0.1 K/mm3 (0.0-0.1); Basophils % (Auto) 1.2 % (0.0-1.8); Eosinophils # (Auto) 0.1 K/mm3 (0.0-0.4); Eosinophils % (Auto) 2.2 % (0.0-4.3); Hematocrit 35.3 % (35.5-45.6); Hemoglobin 11.4 gm/dl (11.8-15.2); Lymphocytes # (Auto) 1.8 K/mm3 (1.2-5.4); Lymphocytes % (Auto) 29.6 % (13.4-35.0); Mean Corpuscular HGB Conc 32 % (32-34); Mean Corpuscular Volume 80 fl (84-94); Monocytes # (Auto) 0.5 K/mm3 (0.0-0.8); Monocytes % (Auto) 8.9 % (0.0-7.3); Platelet Count 338 K/mm3 (140-440); Red Blood Count 4.39 M/mm3 (3.65-5.03); Red Cell Distribution Width 16.5 % (13.2-15.2)
--- NOTE | 2022-07-05 16:41 | Vascular Lab Report ---
DUPLEX DOPPLER LOWER EXTREMITY VEINS, LEFT INDICATION / CLINICAL INFORMATION: left lower ext swelling. HX PVD with stents. TECHNIQUE: Duplex doppler imaging was performed through the veins of the left lower extremity using v enous compression and other maneuvers. COMPARISON: None available. FINDINGS: LEFT COMMON FEMORAL VEIN: Negative. LEFT FEMORAL VEIN: Negative. LEFT POPLITEAL VEIN: Negative. LEFT CALF VEINS: Negative. ADDITIONAL FINDINGS: None. IMPRESSION: 1. No sonographic evidence for DVT in the left lower extremity. Signer Name: Epifanio Banda DO Signed: 07/05/2022 4:37 PM Workstation Name: [id number]
[2022-07-05 16:55] LABS: INR 0.97 (0.87-1.13)
[2022-07-05 16:56] LABS: Partial Thromboplastin Time 28.4 Sec. (24.2-36.6)
[2022-07-05 17:00] LABS: Albumin 3.9 g/dL (3.9-5); Calcium 9.2 mg/dL (8.4-10.2)
== END 2022-07-05 23:55 | disposition left against medical advice (07) ==
LOC: ED 14:28
DX: M25.475 Effusion, left foot (principal); Z53.21 Procedure and treatment not carried out due to patient leaving prior to being seen by health care provider
CPT/HCPCS: 36415; 80053; 85025; 85610; 85730; 99283